=== PATIENT | male | born 2005 | race Caucasian/White ===

== ENCOUNTER 2023-01-17 11:02 | Emergency (ER) | payer OTHER, SELFPAY ==
--- NOTE | 2023-01-17 11:14 | ED.URI ---
HPI - URI/Sore Throat General Chief Complaint: Upper Respiratory Infection Stated Complaint: sorethroat Time Seen by Provider: 01/17/23 11:22 Source: patient, RN notes reviewed and old records reviewed Mode of arrival: ambulatory Limitations: no limitations History of Present Illness HPI Narrative: 17-year-old male presents to the [facility] with complaints of a sore throat that started yesterday with an ulceration on his time, states that has gone away. Woke up this morning with a sore throat and white spots on his tonsils. Patient has a history of type 1 diabetes, current blood sugar per Dexcom 144 Treatments prior to arrival: none Related Data Home Medications Medication Instructions Recorded Confirmed insulin lispro 100 unit/mL See Rx Instructions .Route .COMPLEX 04/23/19 01/17/23 subcutaneous half-unit pen (Humalog Jose Rafael KwikPen (U-100)) Allergies Allergy/AdvReac Type Severity Reaction Status Date / Time No Known Allergies Allergy Verified 01/17/23 11:33 Review of Systems Review of Systems: All systems reviewed & are unremarkable except as noted in HPI and below Constitutional: Constitutional: Reports no additional constitutional complaints Eyes: Eyes: Reports no additional eye complaints ENT: Reports as per HPI and Reports sore throat Cardiovascular: Cardiovascular: Reports no additional cardiovascular complaints, Denies chest pain and Denies dyspnea Respiratory: Respiratory: Reports no additional respiratory complaints, Denies chest congestion, Denies cough and Denies dyspnea Gastrointestinal: Gastrointestinal: Reports no additional gastrointestinal complaints, Denies abdominal pain, Denies nausea and Denies vomiting Musculoskeletal: Musculoskeletal: Reports no additional musculoskeletal complaints Integumentary/Breasts: Skin/Breast: Reports system reviewed and no additional complaints, except as docu Neurologic: Reports system reviewed and no additional complaints, except as documented Psychiatric: Psychiatric: Reports no additional psychiatric complaints Allergic/Immunologic: Allergic/Immunologic: Reports no additional allergic/immunologic complaints PMFSH Past Medical History Medical History (Updated 01/17/23 @ 18:45 by Kadie Hernandez APRN) Type 1 diabetes Comments At the time of my signature, I reviewed and agree with the nursing past medical, surgical, social, and family history. There is no relevant family history pertinent to the patient complaint. Exam Const: General: cooperative, healthy appearing, comfortable, no acute distress, well developed, alert and well nourished Nutritional Appearance: well nourished Orientation/consciousness: patient oriented x3 Limitations: no limitations HENMT: Head: normal to inspection Ears: hearing grossly normal bilaterally and external ears normal Face/Nose/Sinus: Normal external nose present, Normal nares present, Normal nasal mucous membranes and turbinates present and normal facial exam Face and sinus: normal facial exam Mouth: Yes Normal oral and palatal mucosa present, Yes lip normal and Yes moist mucous membranes Throat: posterior oropharynx normal, uvula midline, abnormal tonsil on the right erythema and crypts (Stone noted to the top of the tonsil) and bilateral erythema, exudates and hypertrophy 2+, postnasal drainage and no uvular edema Eyes: General: appearance normal, both eyes and all related structures Alignment and Position: alignment normal Periorbital: periorbital findings normal Pupils: Equal, round and reactive pupils present EOM: EOMs intact bilaterally Neck: Neck: normal visual inspection, full ROM, no lymphadenopathy and no meningeal signs Chest: Chest palpation & inspection: normal inspection of the chest Resp: Effort & Inspection: normal respiratory effort and able to speak in complete sentences Auscultation: clear to auscultation bilaterally, no crackles, no rales, no rhonchi and no wheezes Cardio: Rate: regu
[2023-01-17 11:24] VITALS: BP 133/69; PULSE 85; RESP 18; TEMP 36.8; O2SAT 100
== END 2023-01-17 11:37 | disposition home or self-care (01) ==
PROVIDERS: Emergency Provider Nurse Practitioner
DX: J02.0 Streptococcal pharyngitis (principal); J35.8 Other chronic diseases of tonsils and adenoids; E10.9 Type 1 diabetes mellitus without complications; Z79.4 Long term (current) use of insulin
CPT/HCPCS: 87880; 99213; G0463

== ENCOUNTER 2023-01-19 14:08 | Emergency (ER) | payer OTHER, SELFPAY ==
--- NOTE | ~2023-01-19 | CT_ITS ---
EXAMINATION: CT soft tissue neck w con DATE: 01/19/2023 17:06 INDICATION: Sore throat. TECHNIQUE: Computed tomography (CT) of the neck was performed with 75 mL Omnipaque-350 intravenous co ntrast. Automated exposure control and iterative reconstruction technique were employed. The dose-kvng gth product was 497.42 mGy-cm. COMPARISON: None FINDINGS: The adenoids and palatine tonsils are enlarged. There is mild bilateral internal jugular ch ain lymphadenopathy. For example, a high right internal jugular chain node measures 2.6 x 1.6 cm. The internal jugular veins are patent. The cervical carotid arteries are normal. There is kyphosis of ce rvical spine. There is mild cervical spondylosis. IMPRESSION: 1. Enlarged adenoids and palatine tonsils. No abscess. 2. Mild bilateral cervical lymphadenopathy, likely reactive. Reviewed, dictated and finalized at location A.
[2023-01-19 14:20] VITALS: BP 162/82; PULSE 106; RESP 16; O2SAT 100
[2023-01-19] MEDS: SODIUM CHLORIDE 0.9% IV 1,000 ML 999 ML IV CONT (16:11)
[2023-01-19] MEDS: ACETAMINOPHEN 500 MG TABLET 1000 MG PO (16:11)
[2023-01-19] MEDS: KETOROLAC 30 MG/ML VIAL (*BKC) IV PUSH (16:11)
[2023-01-19 16:18] LABS: Basophils Absolute Auto 0.1 K/mm3 (0.0-0.1); Basophils Percent Auto 0.7 % (0.2-1.2); Eosinophils Absolute Auto 0.2 K/mm3 (0-0.3); Eosinophils Percent Auto 1.8 % (0-4.4); Hematocrit 46.7 % (42.0-52.0); Hemoglobin 15.5 g/dL (14.0-18.0); Immature Granulocyte Absolute 0.02 K/mm3 (0.00-0.031); Immature Granulocyte Percent A 0.2 % (0-0.5); Lymphocytes Absolute Auto 3.52 K/mm3 (0.9-3.2); Mean Corpuscular HGB Conc 33.2 g/dl (32-36); Mean Corpuscular Hemoglobin 29.6 pg (26-34); Mean Corpuscular Volume 89.1 fl (80-100); Mean Platelet Volume 10.2 fl (7.4-10.4); Monocytes Absolute Auto 0.9 K/mm3 (0.1-0.6); Monocytes Percent Auto 11.1 % (2.6-8.5); Neutrophils Absolute Auto 3.5 K/mm3 (1.3-6.7); Neutrophils Percent Auto 43.2 % (45.5-73.1); Platelet Count Result 173 k/mm3 (150-375); Red Blood Count 5.24 M/mm3 (4.6-6.20); Red Cell Distribution Width 13.1 % (11.5-14.5); White Blood Count 8.2 K/mm3 (4.5-10.0)
[2023-01-19 16:30] LABS: Anion Gap 6 mmol/L (8-16); Blood Urea Nitrogen 13 mg/dL (8-21); Calcium 8.8 mg/dL (8.9-10.7); Carbon Dioxide 32 mmol/L (22-30); Chloride 97 mmol/L (98-107); Estimated Glomerular Filt Rate > 60; Glucose 189 mg/dL (65-110); Sodium 135 mmol/L (134-143)
--- NOTE | 2023-01-19 17:35 | ED.GENADULT ---
HPI - General Adult General Chief complaint: Upper Respiratory Infection Stated complaint: sore throat Time Seen by Provider: 01/19/23 15:07 History of Present Illness HPI narrative: Frantz Quesada is a 17 y/o male who presents with reports of being diagnosed with strep throat 2 days ago. He was started on amoxicillin and took two doses Wednesday, two doses Wednesday and one dose today. He states that he feels like he isn't getting any better and having a lot of pain to his throat and reports it is hard for him to swallow. He has not taken anything for his pain and does not know if he has had any fevers. Related Data Home Medications Medication Instructions Recorded Confirmed insulin lispro 100 unit/mL See Rx Instructions .Route .COMPLEX 04/23/19 01/17/23 subcutaneous half-unit pen (Humalog Jose Rafael KwikPen (U-100)) Allergies Allergy/AdvReac Type Severity Reaction Status Date / Time No Known Allergies Allergy Verified 01/17/23 11:33 Review of Systems Review of Systems: CONSTITUTIONAL: Denies fever, chills, or sweats. EYES: Denies visual changes, redness, or discharge. ENT: Denies rhinorrhea, congestion, reports of severe sore throat that has been getting worse over the past 4-5 days CARDIOVASCULAR: Denies chest pain, palpitations, or edema. RESPIRATORY: Denies cough or dyspnea. GASTROINTESTINAL: Denies abdominal pain, nausea, vomiting, or diarrhea. GENITOURINARY: Denies dysuria or hematuria. SKIN: Denies rash or itching. MUSCULOSKELETAL: Denies back pain, joint pain, or myalgia. NEUROLOGIC: Denies headache, numbness, dizziness, or weakness. PSYCHIATRIC: Denies anxiety or depression. [facility] Past Medical History Medical History (Updated 01/19/23 @ 17:35 by Nathalie Santos, FUR TR[employer]PER) Type 1 diabetes Exam Narrative: GENERAL: Well-appearing, well-nourished, and in no acute distress. HEAD: Normocephalic, atraumatic. EYES: PERRLA and EOMI. ENT: Nares clear, no rhinorrhea or epistaxis. Mucous membranes moist. Oropharynx wiht +2-3 tonsillar hypertrophy and exudate present to bilateral tonsils. Bilateral TMs pearly mariee nonbulging NECK: Supple. Cervical adenopathy noted no other masses. No carotid bruits or JVD CHEST: Clear to auscultation. No respiratory distress. No wheezes rales or rhonchi HEART: Regular rate and rhythm. No murmur heard. Normal peripheral pulses. ABDOMEN: Soft, nontender, nondistended, normal active bowel sounds. EXTREMITIES: Normal range of motion. No edema. SKIN: Warm, dry, no rash. NEURO: No focal deficits. Alert and oriented x3. PSYCH: Normal mood and affect. Course Vital Signs Vital signs: Vital Signs Pulse Rate 106 H 01/19/23 14:20 Respiratory Rate 16 01/19/23 14:20 Blood Pressure 162/82 H 01/19/23 14:20 Pulse Oximetry 100 01/19/23 14:20 Oxygen Delivery Room Air 01/19/23 14:20 Pulse Rate 106 H 01/19/23 14:20 Respiratory Rate 16 01/19/23 14:20 Blood Pressure 162/82 H 01/19/23 14:20 Pulse Oximetry 100 01/19/23 14:20 Oxygen Delivery Room Air 01/19/23 14:20 Medical Decision Making [facility] Narrative Medical decision making narrative: On exam pt is noted to have bilateral tonsillar edema +2 or +3 at best with erythema and exudate Not severe swelling, airway patent appears to be consistent with strep infection pt is currently under regimen for this With pt not feeling well and he is concerned there is something blocking his throat will check CT to ensure no abscess or other obstruction noted. Will also give pt tylenol/toradol to help with pain/ fever/ inflammation Discussed plan with pt and he verbalizes agreement and understanding. Patient re-evaluated and he appears to be feeling a lot better and states he is feeling a lot better no longer tachy heart rate felt at 85 sating 100% on RA. He is tolerating PO here CT here is negative for tonsillar abscess Labs stable Differential Diagnosis Differential Diagnosis: Strep infection /
[2023-01-19 18:00] VITALS: BP 124/73; PULSE 92; RESP 18; O2SAT 98
== END 2023-01-19 18:01 | disposition home or self-care (01) ==
PROVIDERS: Emergency Provider Nurse Practitioner Family
DX: J02.0 Streptococcal pharyngitis (principal)
CPT/HCPCS: 36415; 70491; 80048; 85025; 96361; 96374; 99284; A9270; J1885; J7030; Q9967

== ENCOUNTER 2023-11-19 10:56 | Emergency (ER) | payer OTHER, SELFPAY ==
[2023-11-19 11:07] VITALS: BP 134/56; PULSE 66; RESP 18; TEMP 36.7; O2SAT 99
--- NOTE | 2023-11-19 11:26 | ED.SKABFB ---
HPI - Skin/Abscess/Foreign Bdy General Chief complaint: Skin/Abscess/Foreign Body Stated complaint: rash to rt leg Time Seen by Provider: 11/19/23 11:26 Source: patient Mode of arrival: ambulatory Limitations: no limitations History of Present Illness HPI narrative: 17-year-old male presented for complaint of red itchy ring/rash to the right posterior lower leg. First noticed 2 days ago. Endorses itching and burning. He has applied a and D ointment to the site. He denies any known tick bite. States he was hiking 10/31. Denies any other locations of skin changes. Denies lip, tongue, or throat swelling, shortness of breath or wheezing. Denies changes to soap, detergent, lotion, or any other exposures. No one else in the house or any contacts with similar symptoms. Denies fever, headache, myalgia, joint pain or stiffness, or fatigue. Related Data Home Medications Medication Instructions Recorded Confirmed insulin lispro 100 unit/mL See Rx Instructions .Route .COMPLEX 04/23/19 01/17/23 subcutaneous half-unit pen (Humalog Jose Rafael KwikPen (U-100)) blood-glucose sensor (Dexcom G6 11/19/23 11/19/23 Sensor device) blood-glucose transmitter (Dexcom 11/19/23 11/19/23 G6 Transmitter device) Allergies Allergy/AdvReac Type Severity Reaction Status Date / Time No Known Allergies Allergy Verified 11/19/23 11:14 Review of Systems Review of Systems: CONSTITUTIONAL: Denies body aches, fever, chills, or sweats. EYES: Denies visual changes, redness, or discharge. ENT: Denies rhinorrhea, congestion CARDIOVASCULAR: Denies chest pain, palpitations, or edema. RESPIRATORY: Denies cough or dyspnea. GASTROINTESTINAL: Denies abdominal pain, nausea, vomiting, or diarrhea. SKIN: Reports rash to right lower leg MUSCULOSKELETAL: Denies back pain, joint pain, or myalgia. NEUROLOGIC: Denies headache, numbness, tingling, or weakness. [facility] Past Medical History Medical History Type 1 diabetes Comments At time of signature, I have reviewed and agree with nursing past medical, surgical, social and family history unless otherwise noted. Please see nursing chart for further information. There is no relevant family history pertinent to the presenting complaint Exam Narrative: GENERAL: Well-appearing EYES: conjunctivae clear, and EOMI. ENT: Mucous membranes moist. Oropharynx without edema, erythema or lesions. NECK: Supple. No lymphadenopathy CHEST: Clear to auscultation. HEART: Regular rate and rhythm. SKIN: Warm, dry. right posterior lower leg with 7cm diameter ring of erythema with clear center of approx 2.5cm diameter, mildly firm, tender; no fluctuance or warmth. No apparent insect bite or site of entry. NEURO: Alert and oriented x3. Course Course Emergency Course: Patient is aware of diagnosis, understands and agrees to treatment plan. Anticipatory guidance given. Patient agrees to follow-up as directed and is aware of reasons to seek care at the emergency department. Portions of this record may have been created with voice recognition software Level of Care: Express Care Visit Vital Signs Vital signs: Vital Signs Temperature 98.1 F 11/19/23 11:07 Pulse Rate 66 11/19/23 11:07 Respiratory Rate 18 11/19/23 11:07 Blood Pressure 134/56 L 11/19/23 11:07 Pulse Oximetry 99 11/19/23 11:07 Oxygen Delivery Room Air 11/19/23 11:07 Temperature 98.1 F 11/19/23 11:07 Pulse Rate 66 11/19/23 11:07 Respiratory Rate 18 11/19/23 11:07 Blood Pressure 134/56 L 11/19/23 11:07 Pulse Oximetry 99 11/19/23 11:07 Oxygen Delivery Room Air 11/19/23 11:07 Reviewed MDM - Skin/Abscess/Foreign Bdy MDM Narrative Medical decision making narrative: Discussed physical exam findings. Will give steroid and cover with doxy for the ring shape, the patient denies any additional symptoms. Advised supportive measures and signs/sympto
== END 2023-11-19 11:43 | disposition home or self-care (01) ==
PROVIDERS: Emergency Provider Nurse Practitioner Family; Referring Provider Family Medicine
DX: L30.9 Dermatitis, unspecified (principal); E10.9 Type 1 diabetes mellitus without complications
CPT/HCPCS: 99213; G0463

== ENCOUNTER 2025-05-13 12:28 | Emergency (ER) | payer OTHER, SELFPAY ==
[2025-05-13 12:45] VITALS: BP 138/87; PULSE 104; RESP 16; TEMP 36.4; O2SAT 99
[2025-05-13 12:59] LABS: EDSTREPNEGPOS1 Negative (Negative)
[2025-05-13 13:14] LABS: EDCOVIDSCREEN Negative (Negative); EDINFLUASCREEN Negative (Negative); EDINFLUBSCREEN Negative (Negative)
--- NOTE | 2025-05-13 13:22 | ED.URI ---
HPI - URI/Sore Throat General Chief Complaint: Upper Respiratory Infection Stated Complaint: SORE THROAT Time Seen by Provider: 05/13/25 13:17 Source: patient and RN notes reviewed Mode of arrival: ambulatory Limitations: no limitations History of Present Illness HPI Narrative: 19-year-old male patient with type 1 diabetes presents today complaining of sore throat since last night with body aches, fatigue, nasal congestion, postnasal drip, and headache since this morning. Denies cough or fever. He has taken a dose of cold medicine with mild relief. Related Data Home Medications ?Medication ?Instructions ?Recorded ?Confirmed ?Last Taken ?Type insulin lispro 100 unit/mL See Rx Instructions .Route .COMPLEX 04/23/19 01/17/23 Unknown History subcutaneous half-unit pen (Humalog Jose Rafael KwikPen (U-100)) blood-glucose sensor (Dexcom G6 11/19/23 05/13/25 Unknown History Sensor device) blood-glucose transmitter (Dexcom 11/19/23 05/13/25 Unknown History G6 Transmitter device) insulin lispro 100 unit/mL 05/13/25 Unknown History subcutaneous solution Allergies Allergy/AdvReac Type Severity Reaction Status Date / Time No Known Allergies Allergy Verified 05/13/25 12:43 [facility] Past Medical History Medical History Type 1 diabetes Comments At time of signature, I have reviewed and agree with nursing past medical, surgical, social and family history unless otherwise noted. Please see nursing chart for further information. There is no relevant family history pertinent to the presenting complaint Exam Narrative: GENERAL: Mildly ill-appearing, well-nourished, and in no acute distress. HEAD: Normocephalic, atraumatic. EYES: EOMI. No redness or drainage. Conjunctivae normal. ENT: Mucous membranes pink and moist. Nares clear. No rhinorrhea. TMs normal bilaterally. Throat mildly erythematous without edema or exudate. Small amount of clear postnasal drainage noted.. Uvula midline. NECK: Normal AROM. Supple. No lymphadenopathy. CHEST: No respiratory distress. Clear to auscultation. HEART: Regular rate and rhythm. No murmur appreciated. EXTREMITIES: Normal range of motion. No edema. SKIN: Warm, dry, no rash. Capillary refill normal. Normal skin turgor. NEURO: No focal deficits. Alert and oriented x3. Gait steady. PSYCH: Normal affect. No signs of depression or anxiety. Course Course Level of Care: Express Care Visit Vital Signs Vital signs: Vital Signs Temperature 97.6 F 05/13/25 12:45 Pulse Rate 104 H 05/13/25 12:45 Respiratory Rate 16 05/13/25 12:45 Blood Pressure 138/87 05/13/25 12:45 Pulse Oximetry 99 05/13/25 12:45 Temperature 97.6 F 05/13/25 12:45 Pulse Rate 104 H 05/13/25 12:45 Respiratory Rate 16 05/13/25 12:45 Blood Pressure 138/87 05/13/25 12:45 Pulse Oximetry 99 05/13/25 12:45 Reviewed MDM - URI/Sore Throat MDM Narrative Medical decision making narrative: 19-year-old male patient with type 1 diabetes presents today complaining of sore throat since last night with body aches, fatigue, nasal congestion, postnasal drip, and headache since this morning. Denies cough or fever. He has taken a dose of cold medicine with mild relief. Blood sugar upon arrival on pump 127. Upon exam, patient is mildly ill appearing with mildly erythematous throat without edema or exudate. Influenza negative, COVID negative, rapid strep negative. Strep culture pending. Symptoms likely viral in etiology. Discussed [id number] medication use and duration of illness. No prescription medications indicated at this time. Anticipatory guidance given. Vital signs stable. Patient agrees with plan. Differential Diagnosis Differential diagnosis: Likely upper respiratory infection, viral infection, influenza, pharyngitis and other (Strep throat, COVID) Lab Data Attestation: I reviewed the patient's lab results. Labs: Lab Results 05/13/25 05/13/25 Range/Units 12:39 12:57 POC Influenza A Ag Negative (Negative) POC Influenza B Ag Negative (Negative) POC SARS CoV-2 Ag Negative (Negative) POC Grp A Strep Screen Negative (Negative) Critical Care Time Critical Care Time Critical Care Time: No Discharge Plan Discharge Clinical Impression: Upper respiratory infection Qualifiers: URI type: unspecified URI Qualified Code(s): J06.9 - Acute upper respiratory infection, unspecified Patient Disposition: Home Condition: Stable Instructions: Upper Respiratory Infection (DC) Additional Instructions: Your influenza, COVID-19, and rapid strep swabs were negative today at [facility]. You will be notified in a few days if the culture comes back positive for strep, and appropriate antibiotics will be called in for you at that time. Your symptoms are likely due to a viral illness, which is not treated with antibiotics. Viral symptoms can be present for up to 7-10 days. Take Tylenol or ibuprofen for fever or pain. Rest and stay hydrated. Follow up with your PCP in 7 days if symptoms are not improving. Go to the ER immediately if you have any difficulty breathing or swallowing. Patient Language: Setswana Prescriptions: No Action insulin lispro [Humalog Jose Rafael KwikPen U-100] 100 unit/mL insulin pen, half-unit See Rx Instructions .ROUTE .COMPLEX Rx Instructions: insulin pump (DME) Dexcom G6 Sensor Device MISCELLANEOUS (DME) Dexcom G6 Transmitter Device MISCELLANEOUS insulin lispro 100 unit/mL solution Follow-up/Referrals: UNKNOWN,DOCTOR [Primary Care Provider] Stand Alone Forms: Work/School Release IP Time of Disposition: 13:26
== END 2025-05-13 13:29 | disposition home or self-care (01) ==
PROVIDERS: Emergency Provider Nurse Practitioner
DX: J06.9 Acute upper respiratory infection, unspecified (principal); Z20.822 Contact with and (suspected) exposure to COVID-19; E10.9 Type 1 diabetes mellitus without complications; Z79.4 Long term (current) use of insulin
CPT/HCPCS: 87081; 87426; 87804; 87880; 99213; G0463

== ENCOUNTER 2025-06-10 21:31 | Inpatient (IN) | payer OTHER, SELFPAY ==
--- NOTE | ~2025-06-10 | XR_ITS ---
Examination: XR chest 1V portable Clinical History: DKA Comparison: None Technique: Portable AP Findings: Heart size normal. Lungs clear. No acute bony abnormality. IMPRESSION: 1. No acute cardiopulmonary findings given portable technique. Reviewed, dictated and finalized at location R. LITIES MAINTENANCE ASSISTANT
--- NOTE | 2025-06-10 22:11 | ED_ITS ---
HPI - Nausea/Vomiting/Diarrhea General Chief complaint: Nausea/Vomiting/Diarrhea <Josette Ruggiero APRN - Last Filed: 06/10/25 23:55> Stated complaint: pump malfunction, vomiting, DKA? <Josette Ruggiero APRN - Last Filed: 06/10/25 23:55> Time Seen by Provider: 06/10/25 21:42 <Josette Ruggiero APRN - Last Filed: 06/10/25 23:55> History of Present Illness HPI Narrative: Patient is a 19-year-old male who presents to the ER with concerns of DKA. He reports he is a type 1 diabetic, diagnosed when he was 13 years old. Patient reports today he has not been feeling well. He has a new Dexcom but it has not been connected and he was unable to find his glucometer. Patient reports he has been vomiting all day and had decreased p.o. intake. Patient denies any recent fevers, coughing, headache, or congestion. He denies any other medical history relevant to this ER visit. <Josette Ruggiero APRN - Last Filed: 06/10/25 23:55> Related Data Home medications: Home Medications ?Medication ?Instructions ?Recorded ?Confirmed ?Last Taken ?Type blood-glucose sensor (Dexcom G6 11/19/23 06/11/25 Unk nown History Sensor device) blood-glucose transmitter (Dexcom 11/19/23 06/11/25 U nknown History G6 Transmitter device) insulin lispro 100 unit/mL See Rx Instructions .Route .COMPLEX 05/13/25 06/11/25 06/10/25 History subcutaneous solution <Josette Ruggiero APRN - Last Filed: 06/10/25 23:55> Allergies/Adverse reactions: Allergies Allergy/AdvReac Type Severity Reaction Status Date / Time No Known Allergies Allergy Verified 06/11/25 01:49 <Josette Ruggiero APRN - Last Filed: 06/10/25 23:55> Review of Systems 2 Review of Systems: All systems reviewed & are unremarkable except as noted in HPI and below <Josette Ruggiero APRN - Last Filed: 06/10/25 23:55> [facility] Past Medical History Medical History: Medical History Type 1 diabetes <Josette Ruggiero APRN - Last Filed: 06/10/25 23:55> Family History Family History: Family History (Updated 06/11/25 @ 02:10 by Mary Prince RN) Grandparent Diabetes mellitus Hypertension <Josette Ruggiero APRN - Last Filed: 06/10/25 23:55> Social History Social History: Social History Years smoked: 1 Smoking status: Current every day smoker Tobacco type: e-cigarettes/vaping Alcohol intake: current Drinks per week: 1 Substance use: current Substance use type: marijuana Lack of Transportation: No Lack of Food: Never True Current Housing: Decline to Answer Concerned About Future Housing: Decline to Answer Difficulty Paying Gas/Electric Bills: Decline to Answer Difficulty Paying for Meds: No Currently Unemployed: Decline to Answer Education: Decline to Answer Difficulty w/ Childcare or Family Care: Decline to Answer Spiritual care concerns: No <Josette Ruggiero APRN - Last Filed: 06/10/25 23:55> Exam 2 Narrative: GENERAL: Ill appearing, well-nourished, non-toxic, in mild distress. HEAD: Normocephalic, atraumatic. NECK: Supple. No adenopathy, no masses. RESPIRATORY: Airway patent, respirations nonlabored. Clear to auscultation bilaterally, no rales, rhonchi, wheezing. CARDIOVASCULAR: Regular rate and rhythm without murmurs, rubs, or gallops. Peripheral pulses 2+ and equal bilaterally. ABDOMINAL: Soft, nontender, nondistended, no hepatosplenomegaly. Normoactive BS. MUSCULOSKELETAL: Moves all extremities. Strength/ROM intact without gross deformities. SKIN: Warm, dry, normal color. No rashes. NEURO: A&O X3. Speech clear. Cranial nerves II-XII intact. No ataxic movements. PSYCHIATRIC: Appropriate mood and affect. Normal interaction. <Josette Ruggiero APRN - Last Filed: 06/10/25 23:55> [facility] [employer]/PA Physician Supervision This visit was performed by both a physician and an Advanced Practice Provider. I performed all aspects of the Medical Decision Making as documented. <Sony Mena MD - Last Filed: 06/11/25 02:36> Vital Signs Vital signs: Vital Signs Pulse Rate 97 06/11/25 00:17 Respiratory Rate 22 H 06/11/25 00:17 Blood Pressure 140/64 06/11/25 00:17 Pulse Oximetry 100 06/11/25 00:17 Temperature 36.5 C 06/11/25 02:14 Pulse Rate 108 H 06/11/25 02:14 Respiratory Rate 20 06/11/25 02:14 Blood Pressure 146/77 H 06/11/25 02:14 Pulse Oximetry 99 06/11/25 02:14 Oxygen Delivery Room Air 06/11/25 01:38 <Josette Ruggiero INTERNATIONAL ACCOUNTING MANAGER - Last Filed: 06/10/25 23:55> Vital Signs Pulse Rate 97 06/11/25 00:17 Respiratory Rate 22 H 06/11/25 00:17 Blood Pressure 140/64 06/11/25 00:17 Pulse Oximetry 100 06/11/25 00:17 Temperature 36.5 C 06/11/25 02:14 Pulse Rate 108 H 06/11/25 02:14 Respiratory Rate 20 06/11/25 02:14 Blood Pressure 146/77 H 06/11/25 02:14 Pulse Oximetry 99 06/11/25 02:14 Oxygen Delivery Room Air 06/11/25 01:38 <Sony Mena MD - Last Filed: 06/11/25 02:36> [facility] MDM Narrative Medical decision making narrative: Patient is a 19-year-old male who presents to the ER with concerns of DKA. He reports he is a type 1 diabetic, diagnosed when he was 13 years old. Patient reports today he has not been feeling well. He has a new Dexcom but it has not been connected and he was unable to find his glucometer. Patient reports he has been vomiting all day and had decreased p.o. intake. Patient denies any recent fevers, coughing, headache, or congestion. He denies any other medical history relevant to this ER visit. Labs Ordered: CBC, CMP, magnesium, COVID/flu/RSV, VBG, A1c, beta hydroxybutyrate, phosphorus, CMP, CBC, UA Imaging Ordered: Chest x-ray Medications Ordered: 1 L normal saline IV bolus x2, Zofran 4 mg IV x2, Results: Patient's white blood cell count is 18.7. His venous blood gas indicates a pH is 7.019, CO2 of 24.1, PO2 of 71.5, bicarb of 6.1. Patient's chemistry indicates a sodium of 135, potassium of 5.8, chloride of 97, carbon dioxide less than 5, and an anion gap that is undetectable. His glucose on his chemistry was 409. Patient's A1c is 12.7%. His phosphorus is 6.8. Patient's alk-phos is 148. His beta hydroxybutyrate is 9.47. Diagnosis: DKA Consults: 1145-spoke with spike machine heater, Dr. Anitha De La Vega, who was in agreement with plan for admission to the ICU. 1140-spoke with hospitalist, Salima Jackson NP, who is in agreement with plan for admission to the ICU. She will start patient on the DKA protocol. MDM: Results of imaging and lab work shared with patient and his family. It was advised patient be admitted to the hospital for further evaluation and treatment. Patient and his family verbalized understanding and are in agreement with plan. He endorses ongoing nausea, even after Zofran administration. Patient will be given another dose of Zofran. <Josette Ruggiero APRN - Last Filed: 06/10/25 23:55> Differential Diagnosis Differential Diagnosis: DKA, HHS, hyperglycemia, gastroenteritis <Josette Ruggiero APRN - Last Filed: 06/10/25 23:55> Lab Data [facility] Lab Attestation statement: I personally reviewed the patient's lab results. <Josette Ruggiero APRN - Last Filed: 06/10/25 23:55> Result diagrams: 06/10/25 22:11 06/10/25 22:11 <Josette Ruggiero APRN - Last Filed: 06/10/25 23:55> Labs: Lab Results 06/10/25 06/10/25 06/10/25 Range/Units 21:39 22:11 22:11 WBC 18.7 H (4.5-10.0) K/mm3 RBC 5.88 (4.6-6.20) M/mm3 Hgb 17.7 (14.0-18.0) g/dL Hct 54.4 H (42.0-52.0) % MCV 92.5 (80-100) fl MCH 30.1 (26-34) pg MCHC 32.5 (32-36) g/dl RDW 13.1 (11.5-14.5) % Plt Count 261 D (150-375) k/mm3 MPV 10.9 H (7.4-10.4) fl Immature Gran % (Auto) 0.8 H (0-0.5) % Neut % (Auto) 36.1 L (45.5-73.1) % Lymph % (Auto) 10.0 L (18.3-44.2) % [place] % (Auto) 7.9 (2.6-8.5) % Eos % (Auto) 44.4 H (0-4.4) % Baso % (Auto) 0.8 (0.2-1.2) % Lymph # (Auto) 1.87 (0.9-3.2) K/mm3 [place] # (Auto) 1.5 H (0.1-0.6) K/mm3 Eos # (Auto) 8.3 H (0-0.3) K/mm3 Baso # (Auto) 0.1 (0.0-0.1) K/mm3 Abs Immat Gran (auto) 0.14 H (0.00-0.031) K/mm3 Absolute Neuts (auto) 6.8 H (1.3-6.7) K/mm3 Absolute Nucleated RBC 0.000 (0.0-0.012) K/mm3 Nucleated RBC % 0.0 (0.0-0.2) % Sodium 135 L (137-145) mmol/L Potassium 5.8 H (3.4-5.0) mmol/L Chloride 97 L (98-107) mmol/L Carbon Dioxide < 5 L (22-30) mmol/L Anion Gap (4-12) mmol/L BUN 13 (9-20) mg/dL Creatinine 0.97 (0.7-1.3) mg/dL Estim Creat Clear Calc Not Reportable Estimated GFR > 60 (59 - ) Glucose 409 H (65-110) mg/dL POC Capillary Glucose 348 H (65-105) mg/dl Hemoglobin A1c 12.7 H (<5.7) % Calcium 9.8 (8.4-10.2) mg/dL Phosphorus 6.8 H (2.5-4.5) mg/dL Magnesium 1.6 Cancelled (1.6-2.3) mg/dL Total Bilirubin 1.1 (0.2-1.3) mg/dL AST 33 (17-59) U/L ALT 29 (6-50) U/L Alkaline Phosphatase 148 H (38-126) U/L Total Protein 9.6 H (6.3-8.2) g/dL Albumin 5.8 H (3.5-5.1) g/dL Beta-Hydroxybutyrate/Acetoacetate 9.47 H (0.02-0.27) mmol/L <Josette Ruggiero, INTERNATIONAL ACCOUNTING MANAGER - Last Filed: 06/10/25 23:55> Lab Results 06/10/25 06/10/25 06/10/25 Range/Units 21:39 22:11 22:11 WBC 18.7 H (4.5-10.0) K/mm3 RBC 5.88 (4.6-6.20) M/mm3 Hgb 17.7 (14.0-18.0) g/dL Hct 54.4 H (42.0-52.0) % MCV 92.5 (80-100) fl MCH 30.1 (26-34) pg MCHC 32.5 (32-36) g/dl RDW 13.1 (11.5-14.5) % Plt Count 261 D (150-375) k/mm3 MPV 10.9 H (7.4-10.4) fl Immature Gran % (Auto) 0.8 H (0-0.5) % Neut % (Auto) 36.1 L (45.5-73.1) % Lymph % (Auto) 10.0 L (18.3-44.2) % [place] % (Auto) 7.9 (2.6-8.5) % Eos % (Auto) 44.4 H (0-4.4) % Baso % (Auto) 0.8 (0.2-1.2) % Lymph # (Auto) 1.87 (0.9-3.2) K/mm3 [place] # (Auto) 1.5 H (0.1-0.6) K/mm3 Eos # (Auto) 8.3 H (0-0.3) K/mm3 Baso # (Auto) 0.1 (0.0-0.1) K/mm3 Abs Immat Gran (auto) 0.14 H (0.00-0.031) K/mm3 Absolute Neuts (auto) 6.8 H (1.3-6.7) K/mm3 Absolute Nucleated RBC 0.000 (0.0-0.012) K/mm3 Nucleated RBC % 0.0 (0.0-0.2) % Sodium 135 L (137-145) mmol/L Potassium 5.8 H (3.4-5.0) mmol/L Chloride 97 L (98-107) mmol/L Carbon Dioxide < 5 L (22-30) mmol/L Anion Gap (4-12) mmol/L BUN 13 (9-20) mg/dL Creatinine 0.97 (0.7-1.3) mg/dL Estim Creat Clear Calc Not Reportable Estimated GFR > 60 (59 - ) Glucose 409 H (65-110) mg/dL POC Capillary Glucose 348 H (65-105) mg/dl Hemoglobin A1c 12.7 H (<5.7) % Calcium 9.8 (8.4-10.2) mg/dL Phosphorus 6.8 H (2.5-4.5) mg/dL Magnesium 1.6 Cancelled (1.6-2.3) mg/dL Total Bilirubin 1.1 (0.2-1.3) mg/dL AST 33 (17-59) U/L ALT 29 (6-50) U/L Alkaline Phosphatase 148 H (38-126) U/L Total Protein 9.6 H (6.3-8.2) g/dL Albumin 5.8 H (3.5-5.1) g/dL Beta-Hydroxybutyrate/Acetoacetate 9.47 H (0.02-0.27) mmol/L <Sony Mena MD - Last Filed: 06/11/25 02:36> ABG Data ABG results: 06/10/25 22:11 VBG pH 7.019 L* VBG pCO2 24.1 L* VBG pO2 71.5 H VBG HCO3 6.1 L O2 Delivery Device Room air O2 Liters/Min Not Reportable FiO2 21 <Josette Ruggiero APRN - Last Filed: 06/10/25 23:55> 06/10/25 22:11 VBG pH 7.019 L* VBG pCO2 24.1 L* VBG pO2 71.5 H VBG HCO3 6.1 L O2 Delivery Device Room air O2 Liters/Min Not Reportable FiO2 21 <Sony Mena MD - Last Filed: 06/11/25 02:36> Critical Care Time Critical Care Time Critical Care Time: Yes <Sony Mena MD - Last Filed: 06/11/25 02:36> Time Type: Intermittent <Sony Mena MD - Last Filed: 06/11/25 02:36> Initial evaluation, discuss w/ involved parties, attempting to gather old records: 10 minutes <Sony Mena MD - Last Filed: 06/11/25 02:36> Documenting medical record: 5 minutes <Sony Mena MD - Last Filed: 06/11/25 02:36> Review of results (EKG's, labs, imaging): 5 minutes <Sony Mena MD - Last Filed: 06/11/25 02:36> Serial repeat bedside evaluation: 10 minutes <Sony Mena MD - Last Filed: 06/11/25 02:36> Discussing case with multiple memebers of the care team and consultants: 5 minutes <Sony Mena MD - Last Filed: 06/11/25 02:36> Total Critical Care Time: 35 <Sony Mena MD - Last Filed: 06/11/25 02:36> Discharge Plan Discharge Clinical Impression: Diabetic ketoacidosis, History of type 1 diabetes mellitus, Nausea & vomiting <Josette Ruggiero APRN - Last Filed: 06/10/25 23:55> Patient Disposition: Still a Patient <Josette Ruggiero APRN - Last Filed: 06/10/25 23:55> Condition: Serious <Josette Rosibel Ruggiero APRN - Last Filed: 06/10/25 23:55>
[2025-06-10] MEDS: SODIUM CHLORIDE 0.9% IV 1,000 ML 999 ML IV CONT ×2 (22:14→23:22)
[2025-06-10] MEDS: ONDANSETRON INJ 4 MG/2 ML VIAL IV PUSH (22:16)
[2025-06-10 22:19] LABS: Fractional Inspired Oxygen 21 %; HCO3 VBG 6.1 mEq/l (24.0-30.0); PO2 VBG 71.5 mmHg (35.0-45.0)
[2025-06-10 22:21] LABS: Hematocrit 54.4 % (42.0-52.0); Hemoglobin 17.7 g/dL (14.0-18.0); Immature Granulocyte Percent A 0.8 % (0-0.5); Lymphocytes Absolute Auto 1.87 K/mm3 (0.9-3.2); Mean Corpuscular HGB Conc 32.5 g/dl (32-36); Mean Corpuscular Hemoglobin 30.1 pg (26-34); Mean Corpuscular Volume 92.5 fl (80-100); Nucleated Red Blood Cells Absolute Auto 0.000 K/mm3 (0.0-0.012); Nucleated Red Blood Cells Perc 0.0 % (0.0-0.2); Platelet Count Result 261 k/mm3 (150-375); Red Blood Count 5.88 M/mm3 (4.6-6.20); White Blood Count 18.7 K/mm3 (4.5-10.0)
[2025-06-10 22:22] LABS: pH VBG 7.019 (7.300-7.400)
[2025-06-10 22:23] LABS: PCO2 VBG 24.1 mmHg (42.0-48.0)
[2025-06-10 22:33] LABS: Hemoglobin A1C 12.7 % (<5.7)
[2025-06-10 22:46] LABS: Alanine Aminotransferase 29 U/L (6-50); Albumin Level 5.8 g/dL (3.5-5.1); Alkaline Phosphatase 148 U/L (38-126); Aspartate Amino Transferase 33 U/L (17-59); Bilirubin,Total 1.1 mg/dL (0.2-1.3); Blood Urea Nitrogen 13 mg/dL (9-20); Calcium 9.8 mg/dL (8.4-10.2); Carbon Dioxide < 5 mmol/L (22-30); Chloride 97 mmol/L (98-107); Estimated Glomerular Filt Rate > 60; Glucose 409 mg/dL (65-110); Magnesium 1.6 mg/dL (1.6-2.3); Potassium 5.8 mmol/L (3.4-5.0); Sodium 135 mmol/L (137-145); Total Protein 9.6 g/dL (6.3-8.2)
--- NOTE | 2025-06-10 22:52 | ECG_ITS ---
Test Date: 2025-06-10 23:00:11 Measurements Intervals [place] Rate: 106 P: 81 ID: [id number] QRS: 90 QRSD: 98 T: 60 QT: 356 QTc: 475 Interpretive Statements SINUS TACHYCARDIA POSSIBLE LEFT ATRIAL ENLARGEMENT INCOMPLETE RIGHT BUNDLE BRANCH BLOCK BASELINE ARTIFACT- I, AVR, AVL, V1 ABNORMAL ECG No previous ECG available for comparison Electronically Signed On 06-11-2025 08:22:45 INFORMATION SYSTEMS OPERATOR by Jaron Oliveros D.O.
[2025-06-10 23:19] LABS: Beta-Hydroxybutyrate/Acetoace. 9.47 mmol/L (0.02-0.27)
[2025-06-11] VITALS (28 sets, daily range): BP systolic 107–160; BP diastolic 50–89; PULSE 90–126; RESP 18–28; TEMP 36.4–37.6; O2SAT 98–100; BMI 24.2
[2025-06-11] MEDS: ONDANSETRON INJ 4 MG/2 ML VIAL IV PUSH ×4 (00:07→20:14)
[2025-06-11 00:34] LABS: Add Urine Microscopic? YES; Appearance Urine Clear (Clear); Glucose Urine UA 3+ mg/dL (Negative); Leukocyte Esterase Ur Negative LEU/UL (Negative); Nitrate Urine Negative (Negative); Specific Grav Ur 1.024 (1.001-1.035)
[2025-06-11] MEDS: INSULIN HUMAN REGULAR (*BKC) 100 UNITS in SODIUM CHLORIDE 0.9% IV 99 ML 8 UNITS IV CONT (00:48)
--- NOTE | 2025-06-11 01:07 | WPCEDHO ---
ED Hand Off Checklist All vitals saved: yes IV Site documented: yes All med administrations documented: yes Triage Note Triage Note Patient here with vomiting since 06/10/25 21:52 0100. Reports having problems with his Dexcom and has been unable to find finger stick equipment. 20units Regular Insulin given 2 hours prior to arrival. Patient don't feel good and very drowsy Allergies No Known Allergies Allergy (Verified 05/13/25 12:43) Active Medications including assessments/comments Insulin Human Regular 100 (units/ Sodium Chloride) 100 mls @ 8 mls/hr IV CONT .[id number] SHANDA; Protocol Last Admin: 06/11/25 00:48 Dose: 8 units/hr, 8 mls/hr Documented By: ODILON Co-signed By: VANDANA Infusion/Titration Document 06/11/25 00:48 ACO (Rec: 06/11/25 00:49 ACO [id number]) Co-signed By Tori Mendenhall RN Intake IV Site Peripheral Access Left Antecubital Container Volume 100 Waste Amount 0 Dosing Dose Rate 8 Infusion Rate 8 Increase/Decrease Started Elapsed Time Elapsed Time ( 0m minutes) MAR IV Insulin Pump Document 06/11/25 00:48 ACO (Rec: 06/11/25 00:49 ACO [id number]) Co-signed By Tori Mendenhall RN MAR IV Insulin Pump Patient Has an No Insulin Pump MAR IV Insulin Document 06/11/25 00:48 ACO (Rec: 06/11/25 00:49 SETHO [id number]) Co-signed By Tori Mendenhall RN Reason for Administration IV Insulin Infusion DKA Protocol - Reason for Administration IV Insulin Action/Checks IV Insulin Action Initiated Administered/Completed Medications Discontinued Medications Sodium Chloride (Normal Saline Iv) 1,000 mls @ 999 mls/hr IV CONT .Q1H1M STA Stop: 06/10/25 22:42 Last Infusion: 06/10/25 23:22 Dose: Infused Documented By: Admin: 06/10/25 22:14 Dose: 999 mls/hr Documented By: ARIANNE Sodium Chloride (Normal Saline Iv) 1,000 mls @ 999 mls/hr IV CONT .Q1H1M STA Stop: 06/10/25 23:53 Last Infusion: 06/11/25 00:17 Dose: Infused Documented By: Admin: 06/10/25 23:22 Dose: 999 mls/hr Documented By: ODILON Ondansetron HCl (Ondansetron Inj 4 Mg/2 Ml Vial) 4 mg IV PUSH ONCE STA Stop: 06/10/25 22:14 Last Admin: 06/10/25 22:16 Dose: 4 mg Documented By: ODILON Ondansetron HCl (Ondansetron Inj 4 Mg/2 Ml Vial) 4 mg IV PUSH ONCE STA Stop: 06/10/25 23:46 Last Admin: 06/11/25 00:07 Dose: 4 mg Documented By: ODILON Interventions/Assessments IV / Saline Lock, Insert Start: 06/10/25 21:42 Freq: STAT Status: Active Protocol: Document 06/10/25 22:02 TLB (Rec: 06/10/25 22:03 TLB [id number]) IV Assessment Peripheral Access Left Antecubital IV Catheter Access Initiated IV Insertion Date 06/10/25 IV Insertion Time 22:03 Catheter Gauge 20 IV Insertion 1 Attempts IV Site Assessment WNL IV Care and WNL Maintenance PA: Gastrointestinal Assessment Start: 06/10/25 21:31 Freq: Status: Active Protocol: Document 06/10/25 22:54 ACO (Rec: 06/10/25 22:55 ACO [id number]) GI Assessment Gastrointestinal Nausea,Vomiting Symptoms Nausea/Vomiting Assessment Nausea Frequency Intermittent Emesis Frequency Subsided Last Vital Signs Pulse Rate 108 H 06/11/25 01:05 Respiratory Rate 20 06/11/25 01:05 Pulse Oximetry 99 06/11/25 01:05 Blood Pressure 146/77 H 06/11/25 01:05 Blood Pressure Mean 100 06/11/25 01:05 Weight 82 kg 06/11/25 00:16 Last Result - Abnormals Only WBC 18.7 K/mm3 (4.5-10.0) H 06/10/25 22:11 Hct 54.4 % (42.0-52.0) H 06/10/25 22:11 MPV 10.9 fl (7.4-10.4) H 06/10/25 22:11 Immature Gran % (Auto) 0.8 % (0-0.5) H 06/10/25 22:11 Neut % (Auto) 36.1 % (45.5-73.1) L 06/10/25 22:11 Lymph % (Auto) 10.0 % (18.3-44.2) L 06/10/25 22:11 Eos % (Auto) 44.4 % (0-4.4) H 06/10/25 22:11 [place] # (Auto) 1.5 K/mm3 (0.1-0.6) H 06/10/25 22:11 Eos # (Auto) 8.3 K/mm3 (0-0.3) H 06/10/25 22:11 Abs Immat Gran (auto) 0.14 K/mm3 (0.00-0.031) H 06/10/25 22:11 Absolute Neuts (auto) 6.8 K/mm3 (1.3-6.7) H 06/10/25 22:11 VBG pH 7.019 (7.300-7.400) L* 06/10/25 22:11 VBG pCO2 24.1 mmHg (42.0-48.0) L* 06/10/25 22:11 VBG pO2 71.5 mmHg (35.0-45.0) H 06/10/25 22:11 VBG HCO3 6.1 mEq/l (24.0-30.0) L 06/10/25 22:11 Sodium 135 mmol/L (137-145) L 06/10/25 22:11 Potassium 5.8 mmol/L (3.4-5.0) H 06/10/25 22:11 Chloride 97 mmol/L (98-107) L 06/10/25 22:11 Carbon Dioxide < 5 mmol/L (22-30) L 06/10/25 22:11 Glucose 409 mg/dL (65-110) H 06/10/25 22:11 POC Capillary Glucose 361 mg/dl (65-105) H 06/11/25 00:06 Hemoglobin A1c 12.7 % (<5.7) H 06/10/25 22:11 Phosphorus 6.8 mg/dL (2.5-4.5) H 06/10/25 22:11 Alkaline Phosphatase 148 U/L (38-126) H 06/10/25 22:11 Total Protein 9.6 g/dL (6.3-8.2) H 06/10/25 22:11 Albumin 5.8 g/dL (3.5-5.1) H 06/10/25 22:11 Beta-Hydroxybutyrate/Acetoacetate 9.47 mmol/L (0.02-0.27) H 06/10/25 22:11 Most Recent Suicide Severity Rating Suicide Severity Rating NO RISK INDICATED 06/10/25 21:52
--- NOTE | 2025-06-11 01:36 | PC.NURSE ---
This patient, Dipak Landry, was admitted to Intensive Care Unit-5. Patient/family oriented to hospital policies and general routines including ID bracelet, bed and alarms, visiting hours, pain management, procedures, bathroom and other care routines, personal items, smoking policy, room service/diet, and visiting hours. Information on how to activate the Rapid Response Team has been discussed. Patient/Family are encouraged to report perceived risks to care and to ask questions if they do not understand what they are told or what they should do.
[2025-06-11] MEDS: SODIUM CHLORIDE 0.9% IV 1,000 ML 150 ML IV CONT ×2 (01:45→20:31)
--- NOTE | 2025-06-11 01:52 | P.HP_ITS ---
H&P: HPI History of Present Illness Date/Time: 06/11/25 01:52 Chief Complaint: Nausea vomiting diarrhea Narrative: This is a 19-year-old type 1 diabetic. The patient recently received a new continues glucose monitor Dexcom 7 and he was having difficulty getting to work with his insulin pump. According to his significant other he had to tell as insulin pump when to give him insulin. She admits that he had drank some alcoholic drinks last night and may not have given himself enough insulin. The patient has been diabetic since he was 13 years old. And he has been using his old Dexcom 6 to manage his diabetes. A patient intake representative is supposed to come tomorrow to show him how to set up everything for the Dexcom 7. The patient was unable to locate his glucometer at home to monitor his blood sugars accurately. Prior to arrival to the emergency room he had not been feeling well all day. According to the significant other it had been a long time since he had been in DKA. His white count was noted to be 18.7. According ABGs. The patient has metabolic acidosis. His pH is 7.019 and pCO2 was 24.1. Sodium 135, potassium 5.8, chloride 97, carbon dioxide less than 5. Initial glucose was read as 409 and then point care glucose 348 and 318. His A1c is noted to be 12.7. His Bhop (beta hydroxybutyrate/acetoacetate) was noted to be 9.47. His anion gap was not reportable. Anion gap was noted to be 33 as per med calculation. Urine 1+ protein, 3+ glucose, 4+ ketones, an urine blood 1+. Influenza a, influenza B, and covered all negative. Eye Glass Frame Polisher was notified per ED provider. The DKA protocol was initiated. The significant other is at the bedside providing history. The patient is being admitted to inpatient ICU on the date of service of 06/11/2025. Review of Systems Review of Systems: ROS unobtainable: Yes unobtainable due to medical condition and unobtainable due to mental status PMFSH Past Medical History Medical History (Updated 06/10/25 @ 23:55 by Josette Ruggiero APRN) Type 1 diabetes Surgical History Surgical History (Updated 06/11/25 @ 03:29 by Salima Jackson APRN) No significant past surgical history Family History Family History Grandparent Diabetes mellitus Hypertension Social History Social History (Updated 06/11/25 @ 03:30 by Salima Jackson APRN) Social History: He lives with his significant other and her parents and their 4 month old daughter. 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 He does vape sometime and uses marijuana sometimes. Code status: Full code Years smoked: 1 Smoking status: Current every day smoker Tobacco type: e-cigarettes/vaping Alcohol intake: current Drinks per week: 1 Substance use: current Substance use type: marijuana Lack of Transportation: No Lack of Food: Never True Current Housing: Decline to Answer Concerned About Future Housing: Decline to Answer Difficulty Paying Gas/Electric Bills: Decline to Answer Difficulty Paying for Meds: No Currently Unemployed: Decline to Answer Education: Decline to Answer Difficulty w/ Childcare or Family Care: Decline to Answer Spiritual care concerns: No Meds Home Medications and Allergies Home Medications ?Medication ?Instructions ?Recorded ?Confirmed ?Type blood-glucose sensor (Dexcom G6 11/19/23 06/11/25 His tory Sensor device) blood-glucose transmitter (Dexcom 11/19/23 06/11/25 H istory G6 Transmitter device) insulin lispro 100 unit/mL See Rx Instructions .Route .COMPLEX 05/13/25 06/11/25 History subcutaneous solution Allergies Allergy/AdvReac Type Severity Reaction Status Date / Time No Known Allergies Allergy Verified 06/11/25 01:49 Vital Signs Vital Signs - 24 hr 06/11/25 00:17 06/11/25 01:05 Pulse Rate 97 108 H Respiratory Rate 22 H 20 Blood Pressure 140/64 146/77 H Pulse Oximetry 100 99 Exam Const: General: cooperative, comfortable, no acute distress, well developed, Physically active, average body habitus and well nourished Nutritional Appearance: average body habitus and well nourished Other: The patient appears ill and is lethargic. HENMT: Head: normal to inspection, No palpable skull fracture present, normocephalic, atraumatic and abrasion Ears: hearing grossly normal bilaterally Eyes: General: appearance normal, both eyes and all related structures Alignment and Position: alignment normal Eyelids: eyelids normal Pupils: Equal, round and reactive pupils present Neck: Neck: normal visual inspection and full ROM Chest: Chest palpation & inspection: normal inspection of the chest Resp: Effort & Inspection: normal respiratory effort Auscultation: clear to auscultation bilaterally Cardio: Palpation: normal PMI Rate: tachycardic Rhythm: regular rhythm Heart sounds: S1 normal heart sound present and S2 normal heart sound present Peripheral pulses: Peripheral pulses 2+ throughout GI: Inspection: normal to inspection Percussion: Yes normal to percussion Auscultation: normal bowel sounds Rectal Exam: deferred Skin: General skin exam: normal color Lesions: no lesions Rashes: no rashes Trauma: no lacerations or abrasions Wounds: no wounds Hair: normal Nails: normal Neuro: General: oriented to person Cranial nerves: Yes Equal, round and reactive pupils present and Yes Normal hearing present Cognition (Neuro): normal cognition Speech: normal speech Motor exam (neuro): 5/5 motor strength present throughout Sensory Exam: normal sensation Extrem: General: normal to inspection Right upper extremity: normal to inspection and shoulder/upper arm Left upper extremity: normal to inspection and shoulder/upper arm Right lower extremity: normal to inspection Left lower extremity: normal to inspection Psych: Appearance: grossly normal Mental Status: mental status grossly normal Speech and movement: Normal speech and movement present Affect: normal affect Attitude: cooperative Thought process: Normal thought process present Thought content: Yes Normal thought content present Results Labs Labs: Short CBC 06/10/25 Range/Units 22:11 WBC 18.7 H (4.5-10.0) K/mm3 Hgb 17.7 (14.0-18.0) g/dL Hct 54.4 H (42.0-52.0) % Plt Count 261 D (150-375) k/mm3 BMP 06/10/25 22:11 Sodium 135 L Potassium 5.8 H Chloride 97 L Carbon Dioxide < 5 L BUN 13 Creatinine 0.97 Glucose 409 H Calcium 9.8 Liver Function 06/10/25 Range/Units 22:11 Total Bilirubin 1.1 (0.2-1.3) mg/dL AST 33 (17-59) U/L ALT 29 (6-50) U/L Alkaline Phosphatase 148 H (38-126) U/L Albumin 5.8 H (3.5-5.1) g/dL Urine 06/11/25 Range/Units 00:09 Urine Color Yellow (Yellow) Urine Appearance Clear (Clear) Urine pH 5.0 (5.0-9.0) Ur Specific [place] 1.024 (1.001-1.035) Urine Protein 1+ H (Negative) mg/dL Urine Glucose (UA) 3+ H (Negative) mg/dL Attestation: I personally reviewed all lab results ABG Attestation: I personally reviewed and interpreted this ABG as follows: Interpretation: Diabetic ketoacidosis/metabolic acidosis ECG Interpretation: Rate 106 ME 166 QRSd 98 QT 356 QTc 475 --[place]-- P 81 QRS 90 T 60 SINUS TACHYCARDIA POSSIBLE LEFT ATRIAL ENLARGEMENT [-0.1mV P-WAVE IN V1/V2] INCOMPLETE RIGHT BUNDLE BRANCH BLOCK [90+ ms QRS DURATION, TERMINAL R IN V1/V2, 40+ ms S IN I/aVL/V4/V5/V6] ABNORMAL RHYTHM ECG No previous ECG available for comparison Imaging Chest x-ray: My impression: No acute cardiopulmonary disease. See final report Critical Care Time Critical Care Time Critical Care Time: Yes Initial evaluation, discuss w/ involved parties, attempting to gather old records: 10 minutes Documenting medical record: 10 minutes Review of results (EKG's, labs, imaging): 5 minutes Serial repeat bedside evaluation: N/A Discussing case with multiple memebers of the care team and consultants: 5 minutes Total Critical Care Time: 30 Quality VTE Prophylaxis VTE prophylaxis: pharmacologic ordered Assessment and Plan Assessment and plan (1) Diabetic ketoacidosis: Code(s): E11.10 - Type 2 diabetes mellitus with ketoacidosis without coma Status: Acute Assessment and Plan: -the significant other feels that he went into DKA because of malfunctioning equipment. However his A1c is 12.7. -continue with the DKA protocol with BMP every 4 hours. Continue with insulin drip per protocol. -patient has an elevated white count to 18.7 which may be stress-induced. Chest x-ray with no acute cardiopulmonary disease. -since anion gap was not calculated per lab. However with med calc his anion gap was noted to be 33. Patient will need to continue on is insulin drip until his anion gap is less than 12 which would be a closed gap. -ABGs show metabolic acidosis, diabetic ketoacidosis. -urine was positive for 1+ protein, 3+ glucose, 4+ ketones. -the patient was diagnosed with type 1 diabetes when he was 13 years old. -the patient typically uses his Dexcom 6 since he was 13 years old. However he was having difficulty with his Dexcom 7 and the patient intake representative is supposed to be working with him on Wednesday. -the patient will be NPO into his anion gap closes. At this time he is nauseated -consult was placed to dietitian. -the city dispatch supervisor was consulted from the emergency room. (2) Nausea & vomiting: Code(s): R11.2 - Nausea with vomiting, unspecified Status: Acute Assessment and Plan: -as Zofran has been ordered p.r.n.. QTC is 475.
[2025-06-11 01:57] LABS: MRSA (PCR) NOT DETECTED (NOT DETECTE)
[2025-06-11 02:30] LABS: Influenza A QL RT-PCR Negative (Negative); Influenza B QL RT-PCR Negative (Negative); RSV RNA, RT-PCR Negative (Negative); SARS-CoV-2 RNA PCR Negative (Negative)
[2025-06-11 04:47] LABS: Hematocrit 48.8 % (42.0-52.0); Hemoglobin 15.8 g/dL (14.0-18.0); Immature Granulocyte Percent A 1.1 % (0-0.5); Lymphocytes Absolute Auto 1.83 K/mm3 (0.9-3.2); Mean Corpuscular HGB Conc 32.4 g/dl (32-36); Mean Corpuscular Hemoglobin 30.2 pg (26-34); Mean Corpuscular Volume 93.1 fl (80-100); Nucleated Red Blood Cells Absolute Auto 0.000 K/mm3 (0.0-0.012); Nucleated Red Blood Cells Perc 0.0 % (0.0-0.2); Platelet Count Result 196 k/mm3 (150-375); Red Blood Count 5.24 M/mm3 (4.6-6.20); White Blood Count 18.6 K/mm3 (4.5-10.0)
[2025-06-11] MEDS: DEXTROSE 5%/0.45% SOD CHL 1,000 ML 150 ML IV CONT (04:55)
[2025-06-11 05:10] LABS: Blood Urea Nitrogen 11 mg/dL (9-20); Calcium 8.2 mg/dL (8.4-10.2); Carbon Dioxide < 5 mmol/L (22-30); Chloride 107 mmol/L (98-107); Estimated CRCL calculation 136 ml/min; Estimated Glomerular Filt Rate > 60; Glucose 219 mg/dL (65-110); Potassium 4.8 mmol/L (3.4-5.0); Sodium 135 mmol/L (137-145)
[2025-06-11] MEDS: KCL 20 MEQ/D5/0.45% SOD CHL 1,000 ML 150 ML IV CONT ×2 (06:50→13:01)
[2025-06-11] MEDS: ENOXAPARIN 40 MG/0.4 ML SYRINGE SUB-Q (07:55)
[2025-06-11 08:34] LABS: Blood Urea Nitrogen 11 mg/dL (9-20); Calcium 8.5 mg/dL (8.4-10.2); Carbon Dioxide < 5 mmol/L (22-30); Chloride 107 mmol/L (98-107); Estimated CRCL calculation 123 ml/min; Estimated Glomerular Filt Rate > 60; Glucose 191 mg/dL (65-110); Potassium 5.0 mmol/L (3.4-5.0); Sodium 133 mmol/L (137-145)
--- NOTE | 2025-06-11 12:37 | WPDCNINT2 ---
Assessment and Plan Assessment and plan (1) Nausea & vomiting: Code(s): R11.2 - Nausea with vomiting, unspecified Status: Acute (2) History of type 1 diabetes mellitus: Code(s): Z86.39 - Personal history of other endocrine, nutritional and metabolic disease Status: Acute (3) Diabetic ketoacidosis: Code(s): E11.10 - Type 2 diabetes mellitus with ketoacidosis without coma Status: Acute Plan 1. Neurologically: Patient is awake alert following commands. Nonfocal 2. Cardiovascular: Sinus tachycardia is expected. 3. Respiratory: No cough or shortness of breath but he is mildly tachypneic as expected. Chest x-ray was clear 4. GI: Nausea, vomiting, abdominal pain is consistent with DKA. His abdominal examination today is benign. Will start him on some clear liquids and see how he does. 5. and Renal: Denies chemistry earlier today showed normal BUN and creatinine with a sodium level of 133. Patient received IV fluids per protocol. Excellent urine output. 6. Endocrine: A combination of lack of checking his blood sugar and possibly some pump dysfunction cause the acute event. I will have the natural resources extension educator talk to him to try to avoid this from happening again. Blood sugars overall are to 200s but he still has significant anion gap acidosis so will continue insulin drip until it closes and were able to restart his pump. No history of thyroid disease 7. Hematologically: His white blood cell count is elevated which is expected. Hemoglobin was elevated on presentation most likely due to hemoconcentration and is down to 15.8. 8. Id no definite evidence of acute infection therefore no antibiotics have been prescribed. Viral PCRs are negative 9. DVT prophylaxis: On Lovenox. Form Carpenter Consult Note Consult date: 06/11/25 Time Seen: 09:00 Reason for consult: Diabetes ketoacidosis, volume depletion HPI: Dipak Landry is a 19 year old male with history of type 1 diabetes since age 12. He has a continued glucose monitor which apparently is not connecting well with his insulin pump. He did have some alcoholic beverages during the holidays and require extra insulin administration. Yesterday he could not check his sugars appropriately and then developed nausea vomiting, decreased p.o. intake consistent with diabetes ketoacidosis. In the emergency room his blood sugars were 409 with unmeasurable anion gap. His venous blood gas showed a pH 7.01 with a pCO2 of 24 and a bicarb of 6.1. He was started on insulin drip and brought to the ICU for further care. Review of Systems Review of Systems: All systems reviewed & are unremarkable except as noted in HPI and below Constitutional: Constitutional: Reports no additional constitutional complaints Eyes: Eyes: Reports no additional eye complaints ENT: Reports system reviewed and no additional complaints, except as documented Cardiovascular: Cardiovascular: Reports no additional cardiovascular complaints Respiratory: Respiratory: Reports no additional respiratory complaints Gastrointestinal: Gastrointestinal: Reports as per HPI, Reports abdominal pain, Reports nausea and Reports vomiting Comments: Anorexia Genitourinary: Genitourinary: Reports no additional male genitourinary complaints Musculoskeletal: Musculoskeletal: Reports no additional musculoskeletal complaints Psychiatric: Psychiatric: Reports no additional psychiatric complaints [facility] Past Medical History Medical History (Updated 06/10/25 @ 23:55 by Josette Ruggiero APRN) Type 1 diabetes Surgical History Surgical History (Updated 06/11/25 @ 03:29 by Salima Jackson APRN) No significant past surgical history Family History Family History Grandparent Diabetes mellitus Hypertension Social History Social History (Updated 06/11/25 @ 03:30 by Salima Jackson APRN) Social History: He lives with his significant other and her parents and their 4 month old daughter. 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 He does vape sometime and uses marijuana sometimes. Code status: Full code Years smoked: 1 Smoking status: Current every day smoker Tobacco type: e-cigarettes/vaping Alcohol intake: current Drinks per week: 1 Substance use: current Substance use type: marijuana Lack of Transportation: No Lack of Food: Never True Current Housing: Decline to Answer Concerned About Future Housing: Decline to Answer Difficulty Paying Gas/Electric Bills: Decline to Answer Difficulty Paying for Meds: No Currently Unemployed: Decline to Answer Education: Decline to Answer Difficulty w/ Childcare or Family Care: Decline to Answer Spiritual care concerns: No Meds Home Medications and Allergies Home Medications ?Medication ?Instructions ?Recorded ?Confirmed ?Type blood-glucose sensor (Dexcom G6 11/19/23 06/11/25 History Sensor device) blood-glucose transmitter (Dexcom 11/19/23 06/11/25 History G6 Transmitter device) insulin lispro 100 unit/mL See Rx Instructions .Route .COMPLEX 05/13/25 06/11/25 History subcutaneous solution Allergies Allergy/AdvReac Type Severity Reaction Status Date / Time No Known Allergies Allergy Verified 06/11/25 01:49 Vital Signs Vital Signs - 24 hr 06/11/25 00:17 06/11/25 01:05 06/11/25 01:38 Temperature Pulse Rate 97 108 H Respiratory Rate 22 H 20 Blood Pressure 140/64 146/77 H Pulse Oximetry 100 99 Oxygen Delivery Room Air 06/11/25 01:45 06/11/25 02:00 06/11/25 02:00 Temperature 97.5 F L Pulse Rate 126 H 112 H 112 H Respiratory Rate 22 H 26 H Blood Pressure 160/83 H 154/81 H Pulse Oximetry 98 100 Oxygen Delivery 06/11/25 02:14 06/11/25 03:00 06/11/25 04:00 Temperature 97.7 F Pulse Rate 108 H 102 H Respiratory Rate 20 21 H Blood Pressure 146/77 H 154/76 H Pulse Oximetry 99 100 Oxygen Delivery Room Air 06/11/25 04:00 06/11/25 04:00 06/11/25 04:59 Temperature 99.6 F Pulse Rate 105 H 105 H 114 H Respiratory Rate 20 23 H Blood Pressure 147/77 H 133/78 Pulse Oximetry 100 100 Oxygen Delivery 06/11/25 06:00 06/11/25 06:00 06/11/25 07:00 Temperature Pulse Rate 110 H 110 H 122 H Respiratory Rate 19 18 Blood Pressure 115/51 L 115/65 Pulse Oximetry 100 100 Oxygen Delivery 06/11/25 08:00 06/11/25 08:00 06/11/25 09:00 Temperature 98.4 F Pulse Rate 100 103 H 102 H Respiratory Rate 20 18 Blood Pressure 107/61 130/72 Pulse Oximetry 100 100 Oxygen Delivery 06/11/25 09:48 06/11/25 10:00 06/11/25 10:58 Temperature 98.5 F Pulse Rate 102 H 114 H 105 H Respiratory Rate 27 H 28 H Blood Pressure 136/79 108/50 L Pulse Oximetry 100 100 Oxygen Delivery 06/11/25 12:00 06/11/25 12:00 06/11/25 12:00 Temperature Pulse Rate 93 100 97 Respiratory Rate 19 Blood Pressure 120/75 120/75 Pulse Oximetry 100 100 Oxygen Delivery Results Labs 06/11/25 04:17 06/11/25 08:06 Labs: Short CBC 06/10/25 06/11/25 Range/Units 22:11 04:17 WBC 18.7 H 18.6 H (4.5-10.0) K/mm3 Hgb 17.7 15.8 (14.0-18.0) g/dL Hct 54.4 H 48.8 (42.0-52.0) % Plt Count 261 D 196 (150-375) k/mm3 BMP 06/10/25 06/11/25 06/11/25 22:11 04:17 08:06 Sodium 135 L 135 L 133 L Potassium 5.8 H 4.8 5.0 Chloride 97 L 107 107 Carbon Dioxide < 5 L < 5 L < 5 L BUN 13 11 11 Creatinine 0.97 0.77 0.86 Glucose 409 H 219 H 191 H Calcium 9.8 8.2 L 8.5 Liver Function 06/10/25 Range/Units 22:11 Total Bilirubin 1.1 (0.2-1.3) mg/dL AST 33 (17-59) U/L ALT 29 (6-50) U/L Alkaline Phosphatase 148 H (38-126) U/L Albumin 5.8 H (3.5-5.1) g/dL Urine 06/11/25 Range/Units 00:09 Urine Color Yellow (Yellow) Urine Appearance Clear (Clear) Urine pH 5.0 (5.0-9.0) Ur Specific [place] 1.024 (1.001-1.035) Urine Protein 1+ H (Negative) mg/dL Urine Glucose (UA) 3+ H (Negative) mg/dL
[2025-06-11 12:49] LABS: Anion Gap 18 mmol/L (4-12); Blood Urea Nitrogen 9 mg/dL (9-20); Calcium 8.6 mg/dL (8.4-10.2); Carbon Dioxide 7 mmol/L (22-30); Chloride 107 mmol/L (98-107); Estimated CRCL calculation 133 ml/min; Estimated Glomerular Filt Rate > 60; Glucose 234 mg/dL (65-110); Potassium 5.0 mmol/L (3.4-5.0); Sodium 132 mmol/L (137-145)
[2025-06-11] MEDS: ACETAMINOPHEN 500 MG TABLET 1000 MG PO (15:38)
[2025-06-11 15:47] LABS: Anion Gap 18 mmol/L (4-12); Blood Urea Nitrogen 9 mg/dL (9-20); Calcium 8.8 mg/dL (8.4-10.2); Carbon Dioxide 9 mmol/L (22-30); Chloride 106 mmol/L (98-107); Estimated CRCL calculation 121 ml/min; Estimated Glomerular Filt Rate > 60; Glucose 265 mg/dL (65-110); Potassium 4.6 mmol/L (3.4-5.0); Sodium 133 mmol/L (137-145)
[2025-06-11] MEDS: INSULIN HUMAN REGULAR (*BKC) 100 UNITS in SODIUM CHLORIDE 0.9% IV 99 ML IV CONT (18:05)
[2025-06-11 19:42] LABS: Anion Gap 19 mmol/L (4-12); Blood Urea Nitrogen 9 mg/dL (9-20); Calcium 8.7 mg/dL (8.4-10.2); Carbon Dioxide 14 mmol/L (22-30); Chloride 101 mmol/L (98-107); Estimated CRCL calculation 131 ml/min; Estimated Glomerular Filt Rate > 60; Glucose 252 mg/dL (65-110); Potassium 4.2 mmol/L (3.4-5.0); Sodium 134 mmol/L (137-145)
[2025-06-12] VITALS (18 sets, daily range): BP systolic 121–140; BP diastolic 62–84; PULSE 70–122; RESP 16–27; TEMP 36.6–36.9; O2SAT 95–100
[2025-06-12 00:39] LABS: Anion Gap 16 mmol/L (4-12); Blood Urea Nitrogen 9 mg/dL (9-20); Calcium 8.9 mg/dL (8.4-10.2); Carbon Dioxide 12 mmol/L (22-30); Chloride 106 mmol/L (98-107); Estimated CRCL calculation 164 ml/min; Estimated Glomerular Filt Rate > 60; Glucose 200 mg/dL (65-110); Potassium 3.9 mmol/L (3.4-5.0); Sodium 134 mmol/L (137-145)
[2025-06-12 04:57] LABS: Hematocrit 44.9 % (42.0-52.0); Hemoglobin 15.3 g/dL (14.0-18.0); Immature Granulocyte Percent A 0.4 % (0-0.5); Lymphocytes Absolute Auto 1.34 K/mm3 (0.9-3.2); Mean Corpuscular HGB Conc 34.1 g/dl (32-36); Mean Corpuscular Hemoglobin 29.8 pg (26-34); Mean Corpuscular Volume 87.5 fl (80-100); Nucleated Red Blood Cells Absolute Auto 0.000 K/mm3 (0.0-0.012); Nucleated Red Blood Cells Perc 0.0 % (0.0-0.2); Platelet Count Result 155 k/mm3 (150-375); Red Blood Count 5.13 M/mm3 (4.6-6.20); White Blood Count 7.2 K/mm3 (4.5-10.0)
[2025-06-12 05:24] LABS: Anion Gap 16 mmol/L (4-12); Blood Urea Nitrogen 8 mg/dL (9-20); Calcium 8.5 mg/dL (8.4-10.2); Carbon Dioxide 13 mmol/L (22-30); Chloride 104 mmol/L (98-107); Estimated CRCL calculation 150 ml/min; Estimated Glomerular Filt Rate > 60; Glucose 276 mg/dL (65-110); Potassium 3.8 mmol/L (3.4-5.0); Sodium 133 mmol/L (137-145)
[2025-06-12] MEDS: SODIUM CHLORIDE 0.9% IV 1,000 ML 150 ML IV CONT (06:00)
[2025-06-12] MEDS: KCL 20 MEQ/D5/0.45% SOD CHL 1,000 ML 150 ML IV CONT (06:07)
[2025-06-12] MEDS: POTASSIUM BICARBONATE 25 MEQ TABEF PO (08:08)
[2025-06-12] MEDS: ENOXAPARIN 40 MG/0.4 ML SYRINGE SUB-Q (08:08)
[2025-06-12 09:04] LABS: Anion Gap 15 mmol/L (4-12); Blood Urea Nitrogen 8 mg/dL (9-20); Calcium 8.8 mg/dL (8.4-10.2); Carbon Dioxide 19 mmol/L (22-30); Chloride 102 mmol/L (98-107); Estimated CRCL calculation 138 ml/min; Estimated Glomerular Filt Rate > 60; Glucose 241 mg/dL (65-110); Magnesium 1.7 mg/dL (1.6-2.3); Potassium 3.9 mmol/L (3.4-5.0); Sodium 136 mmol/L (137-145)
[2025-06-12] MEDS: BENZOCAINE/MENTHOL (*BKC) 18 EA LOZENGE 1 LOZENGE PO (09:16)
--- NOTE | 2025-06-12 09:26 | WPDINTPN2 ---
Assessment and Plan Assessment and Plan (1) Nausea & vomiting: Code(s): R11.2 - Nausea with vomiting, unspecified Status: Acute (2) History of type 1 diabetes mellitus: Code(s): Z86.39 - Personal history of other endocrine, nutritional and metabolic disease Status: Acute (3) Diabetic ketoacidosis: Code(s): E11.10 - Type 2 diabetes mellitus with ketoacidosis without coma Status: Acute Plan 1. Neurologically: Patient is awake alert following commands. Nonfocal 2. Cardiovascular: Sinus tachycardia is expected. 3. Respiratory: No cough or shortness of breath but he is mildly tachypneic as expected. Chest x-ray was clear 4. GI: Nausea, vomiting, abdominal pain is consistent with DKA and has improved. His abdominal examination today is benign. Tolerating clear liquid diet. I will advance it to full diabetic diet 5. and Renal: Continue IV fluid Excellent urine output. Replace low magnesium and phosphate 6. Endocrine: A combination of lack of checking his blood sugar and possibly some pump dysfunction cause the acute event. I check labs this morning and he still has mild anion gap. I will continue insulin infusion. Continue serial glucoses and electrolyte monitoring. Hopefully in next 8 hours he will transition to subcutaneous insulin. Dietitian consult 7. Hematologically: His white blood cell count was elevated which is expected. Hemoglobin was elevated on presentation most likely due to hemoconcentration and is down to 15.8. Both have improved and normalized 8. Id no definite evidence of acute infection therefore no antibiotics have been prescribed. Viral PCRs are negative 9. DVT prophylaxis: On Lovenox. Total Critical Care Time - 30 minutes Due to a high probability of clinically significant, life threatening deterioration, the patient required my highest level of preparedness to intervene emergently and I personally spent this critical care time directly and personally managing the patient. This critical care time included obtaining a history; examining the patient; pulse oximetry; ordering and review of studies; arranging urgent treatment with development of a management plan; evaluation of patient's response to treatment; frequent reassessment; and discussions with other providers. It was exclusive of separately billable procedures and treating other patients and teaching time. Please see Assessment and Plan section and the rest of the note for further information on patient assessment and treatment Subjective Date/time seen: 06/12/25 Overnight events reviewed. Afebrile. On room air. Tolerating liquid diet He states he feels better. Nausea has improved. No vomiting. He complains of little sore throat. Patient denies fever, chest pain, shortness of breath, cough, abdominal pain,, diarrhea, headache or constipation. All other systems were reviewed and were negative Continues to meet IV fluids and IV insulin infusion Vitals acceptable Exam Narrative: GENERAL: Ill appearing, well-nourished, non-toxic, in mild distress. HEAD: Normocephalic, atraumatic. NECK: Supple. No adenopathy, no masses. RESPIRATORY: Airway patent, respirations nonlabored. Clear to auscultation bilaterally, no rales, rhonchi, wheezing. CARDIOVASCULAR: Regular rate and rhythm without murmurs, rubs, or gallops. Peripheral pulses 2+ and equal bilaterally. ABDOMINAL: Soft, nontender, nondistended, no hepatosplenomegaly. Normoactive BS. MUSCULOSKELETAL: Moves all extremities. Strength/ROM intact without gross deformities. SKIN: Warm, dry, normal color. No rashes. NEURO: A&O X3. Speech clear. Cranial nerves II-XII intact. No ataxic movements. PSYCHIATRIC: Appropriate mood and affect. Normal interaction. Objective Data Vital Signs Vital Signs: Vital Signs - 24 hr 06/11/25 09:48 06/11/25 10:00 06/11/25 10:58 Temperature 36.9 C Pulse Rate 102 H 114 H 105 H Respiratory Rate 27 H 28 H Blood Pressure 136/79 108/50 L Pulse Oximetry 100 100 Oxygen Delivery 06/11/25 12:00 06/11/25 12:00 06/11/25 12:00 Temperature Pulse Rate 93 100 97 Respiratory Rate 19 Blood Pressure 120/75 120/75 Pulse Oximetry 100 100 Oxygen Delivery 06/11/25 13:00 06/11/25 14:00 06/11/25 14:00 Temperature 37.1 C Pulse Rate 90 108 H 112 H Respiratory Rate 19 Blood Pressure 131/79 135/89 Pulse Oximetry 100 100 Oxygen Delivery 06/11/25 15:00 06/11/25 16:00 06/11/25 17:00 Temperature Pulse Rate 94 110 H 105 H Respiratory Rate 19 18 19 Blood Pressure 118/70 117/57 L 122/67 Pulse Oximetry 100 100 100 Oxygen Delivery 06/11/25 17:43 06/11/25 18:00 06/11/25 19:00 Temperature Pulse Rate 108 H 109 H 107 H Respiratory Rate 20 21 H Blood Pressure 135/73 135/64 Pulse Oximetry 100 100 Oxygen Delivery 06/11/25 20:00 06/11/25 20:00 06/11/25 20:00 Temperature 36.9 C Pulse Rate 105 H 120 H Respiratory Rate 26 H Blood Pressure 132/70 Pulse Oximetry 100 Oxygen Delivery Room Air 06/11/25 21:00 06/11/25 22:00 06/11/25 22:00 Temperature Pulse Rate 104 H 90 92 Respiratory Rate 24 H 19 Blood Pressure 121/68 146/79 H Pulse Oximetry 100 99 Oxygen Delivery 06/11/25 23:00 06/12/25 00:00 06/12/25 00:00 Temperature 36.8 C 36.8 C Pulse Rate 95 81 Respiratory Rate 21 H 17 Blood Pressure 130/67 129/67 Pulse Oximetry 98 95 Oxygen Delivery Room Air 06/12/25 00:00 06/12/25 01:00 06/12/25 02:00 Temperature 36.6 C Pulse Rate 91 91 78 Respiratory Rate 16 17 Blood Pressure 140/66 121/62 Pulse Oximetry 100 99 Oxygen Delivery 06/12/25 03:00 06/12/25 03:40 06/12/25 04:00 Temperature 36.6 C Pulse Rate 91 88 Respiratory Rate 19 17 Blood Pressure 128/73 123/76 Pulse Oximetry 100 99 Oxygen Delivery Room Air 06/12/25 04:00 06/12/25 05:00 06/12/25 06:00 Temperature Pulse Rate 87 70 95 Respiratory Rate 18 Blood Pressure 127/80 Pulse Oximetry 100 Oxygen Delivery 06/12/25 06:00 06/12/25 07:00 06/12/25 08:00 Temperature 36.7 C Pulse Rate 91 93 89 Respiratory Rate 22 H 17 19 Blood Pressure 134/73 132/73 133/79 Pulse Oximetry 100 99 100 Oxygen Delivery 06/12/25 09:00 Temperature Pulse Rate 114 H Respiratory Rate 23 H Blood Pressure 138/76 Pulse Oximetry 100 Oxygen Delivery Intake/Output Intake/Output: Intake & Output 06/09/25 06/10/25 06/11/25 06/12/25 23:59 23:59 23:59 23:59 Intake Total 1000 4497.0 1477.3 Output Total 4100 800 Balance 1000 397.0 677.3 Meds/Results Medications: Active Medications Generic Name Dose Route Start Last Admin Trade Name Freq PRN Reason Stop Dose Admin Acetaminophen 1,000 mg 06/11/25 15:34 06/11/25 15:38 Acetaminophen 500 Mg Tablet PO 1,000 mg Q6H PRN Administration Mild Pain (1-3) or Fever Benzocaine 1 lozenge 06/12/25 08:30 06/12/25 09:16 Benzocaine/Menthol (*Bkc) 18 Ea Lozenge PO 1 lozenge PRN PRN Administration Sore Throat Dextrose 12.5 gm 06/11/25 00:06 Dextrose 50% 25 Gm/50 Ml Syringe IV PUSH PRN PRN Hypoglycemia Protocol Enoxaparin Sodium 40 mg 06/11/25 09:00 06/12/25 08:08 Enoxaparin 40 Mg/0.4 Ml Syringe SUB-Q 40 mg DAILY SHANDA Administration Glucagon 1 mg 06/11/25 00:06 Glucagon For Inj 1 Mg Vial IM PRN PRN Hypoglycemia Protocol Glucose 15 gm 06/11/25 00:06 Glucose Oral Gel 15 Gm Of Glucse In 37.5 Gm Tube PO PRN PRN Hypoglycemia Protocol Sodium Chloride 1,000 mls @ 150 mls/hr 06/11/25 00:10 06/12/25 09:15 Normal Saline Iv IV CONT 0 mls/hr .Q6H40M SHANDA Infusion Potassium Chloride/Dextrose/Sod Cl 1,000 mls @ 150 mls/hr 06/11/25 00:10 06/12/25 09:16 Kcl 20 Meq/D5/0.45% Sod Chl IV CONT 150 mls/hr .Q6H40M SHANDA Infusion Dextrose/Sodium Chloride 1,000 mls @ 150 mls/hr 06/11/25 00:10 06/11/25 06:50 Dextrose 5% Sodium Chloride 0.45% IV CONT Infused .Q6H40M SHANDA Infusion Insulin Human Regular 100 100 mls @ 2 mls/hr 06/11/25 00:10 06/12/25 09:15 units/ Sodium Chloride IV CONT 2 units/hr .Q24H SHANDA 2 mls/hr Protocol Titration 2 UNITS/HR Dextrose 1,000 mls @ 100 mls/hr 06/11/25 00:06 Dextrose 5% 1,000 Ml IVPB PRN PRN Hypoglycemia Protocol Ondansetron HCl 4 mg 06/11/25 01:49 06/11/25 20:14 Ondansetron Inj 4 Mg/2 Ml Vial IV PUSH 4 mg Q4H PRN Administration Nausea And Vomiting Radiology Results: ITS Impressions Chest X-Ray 06/11/25 06:35 IMPRESSION: 1. No acute cardiopulmonary findings given portable technique. Labs Labs: Laboratory Results - last 24 hr 06/11/25 06/11/25 06/11/25 09:50 10:48 11:50 WBC RBC Hgb Hct MCV MCH MCHC RDW Plt Count MPV Immature Gran % (Auto) Neut % (Auto) Lymph % (Auto) [place] % (Auto) Eos % (Auto) Baso % (Auto) Lymph # (Auto) [place] # (Auto) Eos # (Auto) Baso # (Auto) Abs Immat Gran (auto) Absolute Neuts (auto) Absolute Nucleated RBC Nucleated RBC % Sodium Potassium Chloride Carbon Dioxide Anion Gap BUN Creatinine Estim Creat Clear Calc Estimated GFR Glucose POC Capillary Glucose 206 H 176 H 216 H Calcium Phosphorus Magnesium 06/11/25 06/11/25 06/11/25 12:11 12:56 14:00 WBC RBC Hgb Hct MCV MCH MCHC RDW Plt Count MPV Immature Gran % (Auto) Neut % (Auto) Lymph % (Auto) [place] % (Auto) Eos % (Auto) Baso % (Auto) Lymph # (Auto) [place] # (Auto) Eos # (Auto) Baso # (Auto) Abs Immat Gran (auto) Absolute Neuts (auto) Absolute Nucleated RBC Nucleated RBC % Sodium 132 L Potassium 5.0 Chloride 107 Carbon Dioxide 7 L Anion Gap 18 H BUN 9 Creatinine 0.79 Estim Creat Clear Calc 133 Estimated GFR > 60 Glucose 234 H POC Capillary Glucose 236 H 235 H Calcium 8.6 Phosphorus Magnesium 06/11/25 06/11/25 06/11/25 14:47 15:26 15:51 WBC RBC Hgb Hct MCV MCH MCHC RDW Plt Count MPV Immature Gran % (Auto) Neut % (Auto) Lymph % (Auto) [place] % (Auto) Eos % (Auto) Baso % (Auto) Lymph # (Auto) [place] # (Auto) Eos # (Auto) Baso # (Auto) Abs Immat Gran (auto) Absolute Neuts (auto) Absolute Nucleated RBC Nucleated RBC % Sodium 133 L Potassium 4.6 Chloride 106 Carbon Dioxide 9 L Anion Gap 18 H BUN 9 Creatinine 0.87 Estim Creat Clear Calc 121 Estimated GFR > 60 Glucose 265 H POC Capillary Glucose 272 H 230 H Calcium 8.8 Phosphorus Magnesium 06/11/25 06/11/25 06/11/25 16:53 17:58 18:56 WBC RBC Hgb Hct MCV MCH MCHC RDW Plt Count MPV Immature Gran % (Auto) Neut % (Auto) Lymph % (Auto) [place] % (Auto) Eos % (Auto) Baso % (Auto) Lymph # (Auto) [place] # (Auto) Eos # (Auto) Baso # (Auto) Abs Immat Gran (auto) Absolute Neuts (auto) Absolute Nucleated RBC Nucleated RBC % Sodium Potassium Chloride Carbon Dioxide Anion Gap BUN Creatinine Estim Creat Clear Calc Estimated GFR Glucose POC Capillary Glucose 251 H 263 H 298 H Calcium Phosphorus Magnesium 06/11/25 06/11/25 06/11/25 19:26 20:47 21:55 WBC RBC Hgb Hct MCV MCH MCHC RDW Plt Count MPV Immature Gran % (Auto) Neut % (Auto) Lymph % (Auto) [place] % (Auto) Eos % (Auto) Baso % (Auto) Lymph # (Auto) [place] # (Auto) Eos # (Auto) Baso # (Auto) Abs Immat Gran (auto) Absolute Neuts (auto) Absolute Nucleated RBC Nucleated RBC % Sodium 134 L Potassium 4.2 Chloride 101 Carbon Dioxide 14 L Anion Gap 19 H BUN 9 Creatinine 0.80 Estim Creat Clear Calc 131 Estimated GFR > 60 Glucose 252 H POC Capillary Glucose 189 H 261 H Calcium 8.7 Phosphorus Magnesium 06/11/25 06/12/25 06/12/25 23:40 00:17 01:43 WBC RBC Hgb Hct MCV MCH MCHC RDW Plt Count MPV Immature Gran % (Auto) Neut % (Auto) Lymph % (Auto) [place] % (Auto) Eos % (Auto) Baso % (Auto) Lymph # (Auto) [place] # (Auto) Eos # (Auto) Baso # (Auto) Abs Immat Gran (auto) Absolute Neuts (auto) Absolute Nucleated RBC Nucleated RBC % Sodium 134 L Potassium 3.9 Chloride 106 Carbon Dioxide 12 L Anion Gap 16 H BUN 9 Creatinine 0.63 L Estim Creat Clear Calc 164 Estimated GFR > 60 Glucose 200 H POC Capillary Glucose 212 H 193 H Calcium 8.9 Phosphorus Magnesium 06/12/25 06/12/25 06/12/25 02:38 03:47 04:21 WBC 7.2 RBC 5.13 Hgb 15.3 Hct 44.9 MCV 87.5 D MCH 29.8 MCHC 34.1 RDW 13.1 Plt Count 155 MPV 10.8 H Immature Gran % (Auto) 0.4 Neut % (Auto) 68.7 Lymph % (Auto) 18.7 [place] % (Auto) 11.4 H Eos % (Auto) 0.4 Baso % (Auto) 0.4 Lymph # (Auto) 1.34 [place] # (Auto) 0.8 H Eos # (Auto) 0.0 Baso # (Auto) 0.0 Abs Immat Gran (auto) 0.03 Absolute Neuts (auto) 4.9 Absolute Nucleated RBC 0.000 Nucleated RBC % 0.0 Sodium 133 L Potassium 3.8 Chloride 104 Carbon Dioxide 13 L Anion Gap 16 H BUN 8 L Creatinine 0.69 L Estim Creat Clear Calc 150 Estimated GFR > 60 Glucose 276 H POC Capillary Glucose 217 H 281 H Calcium 8.5 Phosphorus Magnesium 06/12/25 06/12/25 06/12/25 06:07 07:14 08:06 WBC RBC Hgb Hct MCV MCH MCHC RDW Plt Count MPV Immature Gran % (Auto) Neut % (Auto) Lymph % (Auto) [place] % (Auto) Eos % (Auto) Baso % (Auto) Lymph # (Auto) [place] # (Auto) Eos # (Auto) Baso # (Auto) Abs Immat Gran (auto) Absolute Neuts (auto) Absolute Nucleated RBC Nucleated RBC % Sodium Potassium Chloride Carbon Dioxide Anion Gap BUN Creatinine Estim Creat Clear Calc Estimated GFR Glucose POC Capillary Glucose 249 H 200 H 274 H Calcium Phosphorus Magnesium 06/12/25 06/12/25 08:19 09:14 WBC RBC Hgb Hct MCV MCH MCHC RDW Plt Count MPV Immature Gran % (Auto) Neut % (Auto) Lymph % (Auto) [place] % (Auto) Eos % (Auto) Baso % (Auto) Lymph # (Auto) [place] # (Auto) Eos # (Auto) Baso # (Auto) Abs Immat Gran (auto) Absolute Neuts (auto) Absolute Nucleated RBC Nucleated RBC % Sodium 136 L Potassium 3.9 Chloride 102 Carbon Dioxide 19 L Anion Gap 15 H BUN 8 L Creatinine 0.76 Estim Creat Clear Calc 138 Estimated GFR > 60 Glucose 241 H POC Capillary Glucose 215 H Calcium 8.8 Phosphorus 1.5 L Magnesium 1.7
[2025-06-12] MEDS: MAGNESIUM SULF 2 GM/WATER 50ML 2 GM/50 ML BAG IVPB (09:38)
--- NOTE | 2025-06-12 12:22 | PC.NURSE ---
Sodium phosphate ordered for 0945. Unable to give medication at this time due to only one IV access. Sodium phosphate and insulin are not compatible per micromedex. Called Bernadette in vascular access to place new IV. Bernadette arrived but patient is currently getting Dexcom education. Bernadette stated that she will try back later.
[2025-06-12 13:30] LABS: Anion Gap 12 mmol/L (4-12); Blood Urea Nitrogen 9 mg/dL (9-20); Calcium 8.3 mg/dL (8.4-10.2); Carbon Dioxide 18 mmol/L (22-30); Chloride 102 mmol/L (98-107); Estimated CRCL calculation 134 ml/min; Estimated Glomerular Filt Rate > 60; Glucose 318 mg/dL (65-110); Potassium 3.7 mmol/L (3.4-5.0); Sodium 132 mmol/L (137-145)
[2025-06-12] MEDS: SODIUM PHOSPHATE 20 MM in DEXTROSE 5% IN WATER 250 ML 50 MM IVPB (14:46)
--- NOTE | 2025-06-12 16:30 | PC.NURSE ---
Patient had appointment today with Dexcom rep to help him get his pump and CGM connected. Once patient was connected and insulin drip was discontinued patient was given the CGM agreement, insulin pump agreement, and the insulin pump worksheet. Papers will be placed in chart.
[2025-06-12 17:35] LABS: Anion Gap 11 mmol/L (4-12); Blood Urea Nitrogen 10 mg/dL (9-20); Calcium 8.5 mg/dL (8.4-10.2); Carbon Dioxide 23 mmol/L (22-30); Chloride 101 mmol/L (98-107); Estimated CRCL calculation 149 ml/min; Estimated Glomerular Filt Rate > 60; Glucose 221 mg/dL (65-110); Potassium 3.3 mmol/L (3.4-5.0); Sodium 135 mmol/L (137-145)
[2025-06-12] MEDS: ONDANSETRON INJ 4 MG/2 ML VIAL IV PUSH (21:12)
[2025-06-12 21:18] LABS: Anion Gap 9 mmol/L (4-12); Blood Urea Nitrogen 12 mg/dL (9-20); Calcium 8.6 mg/dL (8.4-10.2); Carbon Dioxide 27 mmol/L (22-30); Chloride 100 mmol/L (98-107); Estimated CRCL calculation 149 ml/min; Estimated Glomerular Filt Rate > 60; Glucose 166 mg/dL (65-110); Potassium 3.0 mmol/L (3.4-5.0); Sodium 136 mmol/L (137-145)
--- NOTE | 2025-06-12 23:23 | PC.NURSE ---
Report called to ALETA Burton on med surg. Pt going into room 321 bed 2 from ICU 5. Pt and his belongings were transferred to 321 at this time. Girlfriend present.
[2025-06-13 04:00] VITALS: BP 140/72; PULSE 89; RESP 16; TEMP 36.7; O2SAT 98
[2025-06-13 07:03] LABS: Hematocrit 46.7 % (42.0-52.0); Hemoglobin 16.2 g/dL (14.0-18.0); Immature Granulocyte Percent A 0.3 % (0-0.5); Lymphocytes Absolute Auto 1.88 K/mm3 (0.9-3.2); Mean Corpuscular HGB Conc 34.7 g/dl (32-36); Mean Corpuscular Hemoglobin 29.9 pg (26-34); Mean Corpuscular Volume 86.2 fl (80-100); Nucleated Red Blood Cells Absolute Auto 0.000 K/mm3 (0.0-0.012); Nucleated Red Blood Cells Perc 0.0 % (0.0-0.2); Platelet Count Result 152 k/mm3 (150-375); Red Blood Count 5.42 M/mm3 (4.6-6.20); White Blood Count 6.1 K/mm3 (4.5-10.0)
[2025-06-13 07:15] LABS: Alanine Aminotransferase 31 U/L (6-50); Albumin Level 4.2 g/dL (3.5-5.1); Alkaline Phosphatase 98 U/L (38-126); Anion Gap 8 mmol/L (4-12); Aspartate Amino Transferase 37 U/L (17-59); Bilirubin,Total 0.6 mg/dL (0.2-1.3); Blood Urea Nitrogen 13 mg/dL (9-20); Calcium 9.2 mg/dL (8.4-10.2); Carbon Dioxide 27 mmol/L (22-30); Chloride 103 mmol/L (98-107); Estimated CRCL calculation 155 ml/min; Estimated Glomerular Filt Rate > 60; Glucose 116 mg/dL (65-110); Magnesium 1.8 mg/dL (1.6-2.3); Potassium 3.1 mmol/L (3.4-5.0); Sodium 138 mmol/L (137-145); Total Protein 7.3 g/dL (6.3-8.2)
[2025-06-13 08:00] VITALS: BP 132/67; PULSE 88; RESP 18; TEMP 36.4; O2SAT 100
[2025-06-13] MEDS: ENOXAPARIN 40 MG/0.4 ML SYRINGE SUB-Q (08:56)
[2025-06-13] MEDS: POTASSIUM CHLORIDE INJ 40 MEQ in SODIUM CHLORIDE 0.9% IV 500 ML 130 MEQ IVPB (10:24)
[2025-06-13] MEDS: POTASSIUM CHLORIDE 20 MEQ ER TABLET 40 MEQ PO (10:24)
[2025-06-13 11:51] VITALS: BP 126/75; PULSE 95; RESP 18; TEMP 36.2
--- NOTE | 2025-06-13 12:29 | P.DS_ITS ---
DS: Admitting Diagnosis Discharge Date 06/13/2025 Admitting Diagnosis DKA DS: Discharge Diagnosis Discharge Diagnosis (1) Nausea & vomiting: Code(s): R11.2 - Nausea with vomiting, unspecified Status: Acute (2) History of type 1 diabetes mellitus: Code(s): Z86.39 - Personal history of other endocrine, nutritional and metabolic disease Status: Acute (3) Diabetic ketoacidosis: Code(s): E11.10 - Type 2 diabetes mellitus with ketoacidosis without coma Status: Acute Plan 1. Neurologically: Patient is awake alert following commands. Nonfocal 2. Cardiovascular: Sinus tachycardia is expected. 3. Respiratory: No cough or shortness of breath but he is mildly tachypneic as expected. Chest x-ray was clear 4. GI: Nausea, vomiting, abdominal pain is consistent with DKA and has improved. His abdominal examination today is benign. Tolerating clear liquid diet. I will advance it to full diabetic diet 5. and Renal: Continue IV fluid Excellent urine output. Replace low magnesium and phosphate 6. Endocrine: A combination of lack of checking his blood sugar and possibly some pump dysfunction cause the acute event. I check labs this morning and he still has mild anion gap. I will continue insulin infusion. Continue serial glucoses and electrolyte monitoring. Hopefully in next 8 hours he will transition to subcutaneous insulin. Dietitian consult 7. Hematologically: His white blood cell count was elevated which is expected. Hemoglobin was elevated on presentation most likely due to hemoconcentration and is down to 15.8. Both have improved and normalized 8. Id no definite evidence of acute infection therefore no antibiotics have been prescribed. Viral PCRs are negative 9. DVT prophylaxis: On Lovenox. Total Critical Care Time - 30 minutes Due to a high probability of clinically significant, life threatening deterioration, the patient required my highest level of preparedness to intervene emergently and I personally spent this critical care time directly and personally managing the patient. This critical care time included obtaining a history; examining the patient; pulse oximetry; ordering and review of studies; arranging urgent treatment with development of a management plan; evaluation of patient's response to treatment; frequent reassessment; and discussions with other providers. It was exclusive of separately billable procedures and treating other patients and teaching time. Please see Assessment and Plan section and the rest of the note for further information on patient assessment and treatment DS: Summary Hospital Course Reason for hospitalization: DKA Hospital Course: 19 years old male with history of insulin-dependent diabetes admitted complained of having nausea and vomiting patient was found to be in DKA. Patient was given IV insulin and IV fluids. After few days of treatment patient started feeling better. today patient is feeling better and was discharged home in stable condition. Patient potassium will be monitored as an outpatient. Follow-up scheduled Status at Discharge Cognitive/behavioral status at discharge: Stable Time Spent with Patient Time attestation: Total time spent providing and/or coordinating discharge services: 30 minutes Exam Narrative: GENERAL: Ill appearing, well-nourished, non-toxic, in mild distress. HEAD: Normocephalic, atraumatic. NECK: Supple. No adenopathy, no masses. RESPIRATORY: Airway patent, respirations nonlabored. Clear to auscultation bilaterally, no rales, rhonchi, wheezing. CARDIOVASCULAR: Regular rate and rhythm without murmurs, rubs, or gallops. Peripheral pulses 2+ and equal bilaterally. ABDOMINAL: Soft, nontender, nondistended, no hepatosplenomegaly. Normoactive BS. MUSCULOSKELETAL: Moves all extremities. Strength/ROM intact without gross deformities. SKIN: Warm, dry, normal color. No rashes. NEURO: A&O X3. Speech clear. Cranial nerves II-XII intact. No ataxic movements. PSYCHIATRIC: Appropriate mood and affect. Normal interaction. Const: General: cooperative, comfortable, no acute distress, well developed, Physically active, average body habitus and well nourished Nutritional Appearance: average body habitus and well nourished Orientation/consciousness: oriented to person Other: The patient appears ill and is lethargic. HENMT: Head: normal to inspection, No palpable skull fracture present, normocephalic, atraumatic and abrasion Ears: hearing grossly normal bilaterally Eyes: General: appearance normal, both eyes and all related structures Alignment and Position: alignment normal Eyelids: eyelids normal Pupils: Equal, round and reactive pupils present Neck: Neck: normal visual inspection and full ROM Chest: Chest palpation & inspection: normal inspection of the chest Resp: Effort & Inspection: normal respiratory effort Auscultation: clear to auscultation bilaterally Cardio: Palpation: normal PMI Rate: tachycardic Rhythm: regular rhythm Heart sounds: S1 normal heart sound present and S2 normal heart sound present Peripheral pulses: Peripheral pulses 2+ throughout GI: Inspection: normal to inspection Auscultation: normal bowel sounds Rectal Exam: deferred Skin: General skin exam: normal color Lesions: no lesions Rashes: no rashes Trauma: no lacerations or abrasions Wounds: no wounds Hair: normal Nails: normal Neuro: General: oriented to person Cranial nerves: Yes Equal, round and reactive pupils present and Yes Normal hearing present Cognition (Neuro): normal cognition Speech: normal speech Motor exam (neuro): 5/5 motor strength present throughout Sensory Exam: normal sensation Extrem: General: normal to inspection Right upper extremity: normal to inspection and shoulder/upper arm Left upper extremity: normal to inspection and shoulder/upper arm Right lower extremity: normal to inspection Left lower extremity: normal to inspection Psych: Appearance: grossly normal Mental Status: mental status grossly normal Speech and movement: Normal speech and movement present Affect: normal affect Attitude: cooperative Thought process: Normal thought process present DS: Data Data Completed and Pending Labs on day of discharge: Labs from last 24 hours 06/13/25 06/13/25 06/13/25 11:01 07:24 06:38 WBC 6.1 RBC 5.42 Hgb 16.2 Hct 46.7 MCV 86.2 MCH 29.9 MCHC 34.7 RDW 13.2 Plt Count 152 MPV 10.6 H Immature Gran % (Auto) 0.3 Neut % (Auto) 55.7 Lymph % (Auto) 31.1 [place] % (Auto) 11.6 H Eos % (Auto) 0.8 Baso % (Auto) 0.5 Lymph # (Auto) 1.88 [place] # (Auto) 0.7 H Eos # (Auto) 0.1 Baso # (Auto) 0.0 Abs Immat Gran (auto) 0.02 Absolute Neuts (auto) 3.4 Absolute Nucleated RBC 0.000 Nucleated RBC % 0.0 Sodium 138 Potassium 3.1 L Chloride 103 Carbon Dioxide 27 Anion Gap 8 BUN 13 Creatinine 0.67 L Estim Creat Clear Calc 155 Estimated GFR > 60 Glucose 116 H POC Capillary Glucose 184 H 134 H Calcium 9.2 Phosphorus 3.4 Magnesium 1.8 Total Bilirubin 0.6 AST 37 ALT 31 Alkaline Phosphatase 98 Total Protein 7.3 Albumin 4.2 12/31/25 12/30/25 12/30/25 03:56 23:28 22:00 WBC RBC Hgb Hct MCV MCH MCHC RDW Plt Count MPV Immature Gran % (Auto) Neut % (Auto) Lymph % (Auto) [place] % (Auto) Eos % (Auto) Baso % (Auto) Lymph # (Auto) [place] # (Auto) Eos # (Auto) Baso # (Auto) Abs Immat Gran (auto) Absolute Neuts (auto) Absolute Nucleated RBC Nucleated RBC % Sodium Potassium Chloride Carbon Dioxide Anion Gap BUN Creatinine Estim Creat Clear Calc Estimated GFR Glucose POC Capillary Glucose 118 H 131 H 160 H Calcium Phosphorus Magnesium Total Bilirubin AST ALT Alkaline Phosphatase Total Protein Albumin 06/12/25 06/12/25 06/12/25 20:50 16:55 14:08 WBC RBC Hgb Hct MCV MCH MCHC RDW Plt Count MPV Immature Gran % (Auto) Neut % (Auto) Lymph % (Auto) [place] % (Auto) Eos % (Auto) Baso % (Auto) Lymph # (Auto) [place] # (Auto) Eos # (Auto) Baso # (Auto) Abs Immat Gran (auto) Absolute Neuts (auto) Absolute Nucleated RBC Nucleated RBC % Sodium 136 L 135 L Potassium 3.0 L 3.3 L Chloride 100 101 Carbon Dioxide 27 23 Anion Gap 9 11 BUN 12 10 Creatinine 0.70 0.70 Estim Creat Clear Calc 149 149 Estimated GFR > 60 > 60 Glucose 166 H 221 H POC Capillary Glucose 240 H Calcium 8.6 8.5 Phosphorus Magnesium Total Bilirubin AST ALT Alkaline Phosphatase Total Protein Albumin 06/12/25 06/12/25 13:25 12:58 WBC RBC Hgb Hct MCV MCH MCHC RDW Plt Count MPV Immature Gran % (Auto) Neut % (Auto) Lymph % (Auto) [place] % (Auto) Eos % (Auto) Baso % (Auto) Lymph # (Auto) [place] # (Auto) Eos # (Auto) Baso # (Auto) Abs Immat Gran (auto) Absolute Neuts (auto) Absolute Nucleated RBC Nucleated RBC % Sodium 132 L Potassium 3.7 Chloride 102 Carbon Dioxide 18 L Anion Gap 12 BUN 9 Creatinine 0.78 Estim Creat Clear Calc 134 Estimated GFR > 60 Glucose 318 H POC Capillary Glucose 269 H Calcium 8.3 L Phosphorus Magnesium Total Bilirubin AST ALT Alkaline Phosphatase Total Protein Albumin Discharge Plan Discharge Attending physician on discharge: Eliazar Boateng Consulting providers: Doron Burton Discharging Clinician: Eliazar Boateng Patient Disposition: Home Activity: as tolerated Diet: diabetic Patient Instructions: Antibiotic Form, How to Stop Smoking (DC), Diabetic Ketoacidosis (DC) Patient Language: [place] Stand Alone Forms: General Discharge Information Follow-up/Referrals: Karuna,Mark Gleason MD [Primary Care Provider, Unknown] Discharge Medications: New potassium chloride [K-Tab] 20 mEq tablet extended release 20 meq PO DAILY Qty: 7 0RF Continued (DME) Dexcom G6 Sensor Device MISCELLANEOUS (DME) Dexcom G6 Transmitter Device MISCELLANEOUS insulin lispro 100 unit/mL solution See Rx Instructions .ROUTE .COMPLEX Qty: 30 0RF Rx Instructions: insulin pump; basal rate 1unit for every 10 carbs Date of admission: 06/10/25 23:55 Primary Care Provider: RosemarieMark Admitting Provider: Iveth Tripathi Attending physician on admission: Iveth Tripathi Condition: Serious
[2025-06-13 15:24] LABS: Potassium 3.4 mmol/L (3.4-5.0)
[2025-06-13 15:36] VITALS: BP 115/72; PULSE 96; RESP 20; TEMP 36.6; O2SAT 98
--- NOTE | 2025-06-15 14:20 | PCCDE ---
06/15/25: DM educator courtesy call completed. per pt: fasting glucose 80-120 highest during the day: 140 - Pt has the islet [employer] insulin pump connected with his Dexcom G7 reports to meeting with pump educator and that he's doing well with pump/CGM and DM management.
== END 2025-06-13 15:50 | disposition home or self-care (01) | DRG 639 ==
LOC: ANHED 23:55 → ANHICU 06-11 01:24 → ANH3MEDSUR 06-12 23:26
PROVIDERS: Internal Medicine; Internal Medicine Critical Care Medicine; Nurse Practitioner; Admitting Provider Internal Medicine; Emergency Provider Registered Nurse; PCP Family Medicine; Visit Provider Internal Medicine
DX: E10.10 Type 1 diabetes mellitus with ketoacidosis without coma (principal); F17.290 Nicotine dependence, other tobacco product, uncomplicated; F12.90 Cannabis use, unspecified, uncomplicated; Z96.41 Presence of insulin pump (external) (internal); Z20.822 Contact with and (suspected) exposure to COVID-19
CPT/HCPCS: 36415; 71045; 80048; 80053; 81001; 82010; 82803; 82948; 83036; 83735; 84100; 84132; 85025; 87637; 87641; 93005; 96361; 96374; 99285; A9270; J1650; J1815; J2405; J3475; J3480; J7030; J7040; J7060